=== PATIENT | female | born 1940 | race Caucasian/White ===

== ENCOUNTER 2017-05-30 15:10 | Emergency (ER) | payer MEDICARE, OTHER ==
[2017-05-30] MEDS ORDERED: NovoLIN R IV ONE (15:11)
[2017-05-30] MEDS ORDERED: ROCEPHIN 1 Gm-D5w 50 ml Bag** 1 G/50 ML IVPB IV STA (15:40)
[2017-05-30] MEDS ORDERED: Sodium Chloride 0.9% 1000 ML 1,000 ML IV SCH (15:45)
[2017-05-30] MEDS ORDERED: Robitussin AC Syrup Unit Dose Cup PO STA (15:48)
--- NOTE | 2017-05-30 15:48 | ERPHSYRPT ---
- History of Present Illness Time Seen by Provider: 05/30/17 15:32 Source: patient Exam Limitations: clinical condition Patient Subjective Stated Complaint: pt here for a cough since , pt finished antibotics on for earache and sore throat. no fever Triage Nursing Assessment: pt walked in, alert, resp easy, congested sounding cough, productive june in color Physician History: PATIENT COMPLAINS OF PERSISTENT COUGH FOR 2 DAYS, JUST FINISHED COURSE OF ANTIBIOTIC LEVAQUIN 500MG DAILY FOR 10 DAYS. DENIES FEVER, CHILLS OR CHEST PAIN. Timing/Duration: day(s) (10) Cough Quality/Degree: productive cough Possible Cause: unknown cause Modifying Factors: Improves With: nothing Associated Symptoms: cough Allergies/Adverse Reactions: No Known Drug Allergies Allergy (Verified 05/30/17 15:27) Home Medications: Aspirin EC 81 mg [Ecotrin 81 mg] 81 mg DAILY 05/30/17 [History] Cetirizine HCl [Zyrtec] 10 mg DAILY 05/30/17 [History] Levothyroxine Sodium [Levoxyl] 125 mcg DAILY 05/30/17 [History] Metoprolol Succinate 100 mg DAILY 05/30/17 [History] Potassium Chloride [Klor-Con M10] 20 meq BID 05/30/17 [History] Rosuvastatin Calcium [Rosuvastatin Calcium] 5 mg DAILY 05/30/17 [History] Triamterene/Hydrochlorothiazid [Triamterene-Hctz 75-50 mg Tab] 1 ea DAILY [History] Hx Influenza Vaccination/Date Given: Yes Hx Pneumococcal Vaccination/Date Given: Yes Immunizations Up to Date: Yes - Review of Systems Constitutional: No Symptoms, No Fever, No Chills Eyes: No Symptoms Ears, Nose, & Throat: No Symptoms Respiratory: No Cough, No Dyspnea Cardiac: No Symptoms, No Chest Pain, No Edema, No Syncope Abdominal/Gastrointestinal: No Symptoms, No Abdominal Pain, No Nausea, No Vomiting, No Diarrhea Genitourinary Symptoms: No Symptoms, No Dysuria Musculoskeletal: No Symptoms, No Back Pain, No Neck Pain Skin: No Rash Neurological: No Dizziness, No Focal Weakness, No Sensory Changes Psychological: No Symptoms Endocrine: No Symptoms All Other Systems: Reviewed and Negative - Past Medical History Pertinent Past Medical History: Yes Neurological History: No Pertinent History ENT History: Macular Degeneration Cardiac History: Hypertension Respiratory History: No Pertinent History Endocrine Medical History: Hypothyroidism Musculoskeletal History: Osteoarthritis GI Medical History: Diverticulitis, GERD, Other History: No Pertinent History Psycho-Social History: No Pertinent History Female Reproductive Disorders: No Pertinent History Other Medical History: L TKA 2009 - Past Surgical History Past Surgical History: Yes Neuro Surgical History: No Pertinent History Cardiac: No Pertinent History Respiratory: No Pertinent History Gastrointestinal: Appendectomy, Cholecystectomy Genitourinary: No Pertinent History Musculoskeletal: Orthopedic Surgery Female Surgical History: Hysterectomy, Lumpectomy Other Surgical History: both knee replaced - Social History Smoking Status: Never smoker Exposure to second hand smoke: No Drug Use: none Patient Lives Alone: No - Female History Hx Last Menstrual Period: post Hx Now: No - Nursing Vital Signs Nursing Vital Signs: Initial Vital Signs Temperature 98.5 F 05/30/17 15:22 Pulse Rate 69 05/30/17 15:22 Respiratory Rate 16 05/30/17 15:22 Blood Pressure 155/91 05/30/17 15:22 O2 Sat by Pulse Oximetry 98 05/30/17 15:22 Pain Scale Pain Intensity 0 - Physical Exam General Appearance: no apparent distress, alert Eye Exam: PERRL/EOMI, eyes nml inspection Ears, Nose, Throat Exam: normal ENT inspection, TMs normal, pharynx normal, moist mucous membranes Neck Exam: normal inspection, non-tender, supple, full range of motion Respiratory Exam: diminished breath sounds, wheezing (TERMINAL EXPIRATORY WHEEZES), No respiratory distress Cardiovascular Exam: regular rate/rhythm, normal heart sounds Gastrointestinal/Abdomen Exam: soft, No tenderness Back Exam: normal inspection, No CVA tenderness, No vertebral tenderness Extremity Exam: normal inspection, normal range of motion Neurologic Exam: alert, oriented x 3, cooperative, normal mood/affect, sensation nml, No motor deficits Skin Exam: normal color, warm, dry, No rash Lymphatic Exam: No adenopathy SpO2 Interpretation: normal SpO2: 98 Oxygen Delivery: Aerosol Mask - Radiology Exams Chest X-ray Interpretation: Interpreted by me ([facility]) Ordered Tests: Active Orders 24 hr Category Date Time Status IV Insertion STAT Care 05/30/17 15:40 Active Oxygen-ED Only NASAL CANNULA 2 lpm Care 05/30/17 15:11 Active CHEST 2 VIEWS (PA AND LAT) Stat Exams 05/30/17 16:09 Taken BLOOD CULTURE Stat Lab 05/30/17 15:45 Received CBC W DIFF Stat Lab 05/30/17 15:45 Completed Respiratory Nebulizer STAT RT 05/30/17 16:35 Completed Medication Summary Generic Name Dose Route Start Last Admin Trade Name Akilah PRN Reason Stop Dose Admin Sodium Chloride 1,000 mls @ 100 mls/hr 05/30/17 15:45 05/30/17 15:59 Sodium Chloride 0.9% 1000 Ml IV 06/29/17 15:44 100 mls/hr .Q10H KELLEY Administration Discontinued Medications Generic Name Dose Route Start Last Admin Trade Name Akilah PRN Reason Stop Dose Admin Albuterol/Ipratropium 3 ml 05/30/17 16:35 05/30/17 16:44 Duoneb 0.5-3 Mg/3 Ml Neb IH 05/30/17 16:36 3 ml STAT ONE Administration Albuterol/Ipratropium Confirm 05/30/17 16:42 Duoneb 0.5-3 Mg/3 Ml Neb Administered 05/30/17 16:43 Dose 3 ml IH .STK-MED ONE Guaifenesin/Codeine Phosphate 5 ml 05/30/17 15:48 05/30/17 16:00 Robitussin Ac Syrup Unit Dose Cup PO 05/30/17 15:49 5 ml STAT STA Administration Guaifenesin/Codeine Phosphate Confirm 05/30/17 15:57 Robitussin Ac Syrup Unit Dose Cup Administered 05/30/17 15:58 Dose 5 ml .ROUTE .STK-MED ONE Ceftriaxone Sodium/Dextrose 1 g in 50 mls @ 100 mls/hr 05/30/17 15:40 16:00 Rocephin 1 Gm-D5w 50 Ml Bag IV 05/30/17 16:09 100 mls/hr STAT STA Administration Ceftriaxone Sodium/Dextrose Confirm 05/30/17 15:57 Rocephin 1 Gm-D5w 50 Ml Bag Administered 05/30/17 15:58 Dose 1 g in 50 mls @ ud IV .STK-MED ONE Insulin Human Regular 10 unit 05/30/17 15:11 05/30/17 15:53 Novolin R IV 03/04/18 15:12 Not Given STAT ONE Methylprednisolone Sodium Succinate Confirm 05/30/17 15:57 Solu-Medrol 125 Mg Administered 05/30/17 15:58 Dose 125 mg .ROUTE .STK-MED ONE Methylprednisolone Sodium Succinate 125 mg 05/30/17 16:01 05/30/17 16:02 Solu-Medrol 125 Mg IV 05/30/17 16:02 125 mg STAT ONE Administration Methylprednisolone Sodium Succinate Confirm 05/30/17 16:09 Solu-Medrol 125 Mg Administered 05/30/17 16:10 Dose 125 mg .ROUTE .STK-MED ONE Lab/Rad Data: Laboratory Result Diagrams 05/30/17 15:45 Laboratory Results 05/30/17 Range/Units 15:45 WBC 4.9 (4.0-10.5) K/mm3 RBC 4.41 (4.1-5.4) M/mm3 Hgb 13.5 (12.0-16.0) gm/dl Hct 40.5 (35-47) % MCV 91.8 (78-100) fl MCH 30.6 (26-32) pg MCHC 33.3 (32-36) g/dl RDW 12.6 (11.5-14.0) % Plt Count 204 (150-450) K/mm3 MPV 9.3 (6-9.5) fl Gran % 50.1 (36.0-66.0) % Lymphocytes % 26.0 (24.0-44.0) % Monocytes % 15.7 H (0.0-12.0) % Eosinophils % 7.8 H (0.00-5.0) % Basophils % 0.4 (0.0-0.4) % Basophils # 0.02 (0-0.4) - Progress Progress: improved Air Movement: good Progress Note: 05/30/17 15:54 ADMINISTERED DUO NEB AEROSOL TX, IV SOLUMEDROL 125MG AND ROCEPHIN 1GM IVPB, 1V NORMAL SALINE 100MG/HR , ROCEPHIN 1GM IVPB 05/30/17 17:11 Blood Culture(s) Obtained: Yes Antibiotics given: Yes Counseled pt/family regarding: lab results, diagnosis, need for follow-up, rad results - Departure Time of Disposition: 17:15 Departure Disposition: Home Clinical Impression: ACUTE BRONCHITIS Condition: Stable Critical Care Time: No Referrals: CHAN HUSTON [Primary Care Provider] - Additional Instructions: BEGIN ANTIBIOTIC AUGMENTIN 875MG TWICE DAILY FOR 10 DAYS. PREDNISONE 20MG, 2 TABLETS DAILY FOR 5 DAYS. TAKE OVER THE COUNTER COUGH, ROBITUSSIN DM EXPECTORANT EVERY 4 HOURS NEEDED. Prescriptions: Amox Tr/Potass Clav. 875 mg [Augmentin 875-125 Tablet] 875 mg PO BID #20 tablet Prednisone 20 mg [Deltasone 20 mg] 2 tab PO DAILY #10 tablet
[2017-05-30] MEDS ORDERED: Robitussin AC Syrup Unit Dose Cup ONE (15:57)
[2017-05-30] MEDS ORDERED: solu-MEDROL 125 MG ONE ×2 (15:57→16:09)
[2017-05-30] MEDS ORDERED: Sodium Chloride 0.9% 1000 ML 1,000 ML ONE (15:57)
[2017-05-30] MEDS ORDERED: ROCEPHIN 1 Gm-D5w 50 ml Bag** 1 G/50 ML IVPB IV ONE (15:57)
[2017-05-30] MEDS ORDERED: solu-MEDROL 125 MG IV ONE (16:01)
[2017-05-30 16:03] LABS: BASOPHIL % 0.4 % (0.0-0.4); Basophil (Absolute #) 0.02 (0-0.4); Eosinophil % 7.8 % (0.00-5.0); Eosinophil (Absolute #) 0.38 (0-0.5); Granulocyte Absolute (ANC) 2.43 (1.4-6.9); Granulocytes % 50.1 % (36.0-66.0); Hematocrit 40.5 % (35-47); Hemoglobin 13.5 gm/dl (12.0-16.0); Lymphocyte (Absolute #) 1.26 (1.0-4.6); Mean Cell Volume 91.8 fl (78-100); Mean Corpuscular Hemoglobin 30.6 pg (26-32); Mean Corpuscular Hgb Concent. 33.3 g/dl (32-36); Mean Platelet Volume 9.3 fl (6-9.5); Monocyte (Absolute #) 0.76 (0.0-1.3); Monocytes % 15.7 % (0.0-12.0); Platelet Count 204 K/mm3 (150-450); Red Blood Count 4.41 M/mm3 (4.1-5.4); Red Cell Distribution Width 12.6 % (11.5-14.0); White Blood Count 4.9 K/mm3 (4.0-10.5)
[2017-05-30] MEDS ORDERED: DUONEB 0.5-3 MG/3 ml Neb IH ONE ×2 (16:35→16:42)
[2017-05-30 17:25] VITALS: BP 150/88; PULSE 80; O2SAT 97
--- NOTE | 2017-05-30 20:24 | XRAY ---
Indication: Cough and wheezing. Comparison: None PA/lateral chest clear with incidental right upper lung calcified granuloma. Heart and mediastinal structures within normal limits. Bony thorax intact with mild osteopenia and degenerative changes. Impression: Nonacute chest with chronic features.
== END 2017-05-30 17:24 | disposition home or self-care (01) ==
LOC: ED 15:10
DX: J20.9 Acute bronchitis, unspecified (principal); Z79.82 Long term (current) use of aspirin; Z79.899 Other long term (current) drug therapy
CPT/HCPCS: 36000; 36415; 71046; 85025; 87040; 94150; 94640; 96360; 96365; 96374; 96375; 99284; J0696; J2930; A9270-GY

== ENCOUNTER 2017-10-30 15:37 | Emergency (ER) | payer MEDICARE, OTHER ==
--- NOTE | 2017-10-30 16:26 | ERPHSYRPT ---
- History of Present Illness Time Seen by Provider: 10/30/17 16:11 Source: patient Exam Limitations: no limitations Patient Subjective Stated Complaint: pt reports pain to back beginning some time ago-states that she doesn't wear her bra at home and can barely tolerate wearing it in public because it hurts so bad-denies injury-denies lifiting- denies rash Triage Nursing Assessment: pt pink warm and [id number] easy and nonlabored- no obvious signs of injury-pt ambulatory with no limp or difficulty noted Physician History: The patient is a 77-year-old female with her complaining of intermittent back pain for 2 months. Last night it was very severe and the patient was unable to sleep. She does not want to go through another night like last night. At this time her back pain is minimal. She denies trauma. She denies problems with urination, defecation, or sensory problems. Her past medical history significant for hypertension, high cholesterol, and hypothyroidism. Timing/Duration: other (2 months) Method of Injury: unknown Quality: sharp Back Pain Location: paraspinous muscles Severity of Pain-Max: severe Severity of Pain-Current: mild Modifying Factors: Improves With: nothing Associated Symptoms: lower back pain, muscle spasms Previous symptoms: no prior history Allergies/Adverse Reactions: No Known Drug Allergies Allergy (Verified 10/30/17 15:50) Home Medications: Aspirin EC 81 mg [Ecotrin 81 mg] 81 mg DAILY 05/30/17 [History] Cetirizine HCl [Zyrtec] 10 mg DAILY 05/30/17 [History] Levothyroxine Sodium [Levoxyl] 125 mcg DAILY 05/30/17 [History] Metoprolol Succinate 100 mg DAILY 05/30/17 [History] Potassium Chloride [Klor-Con M10] 20 meq BID 05/30/17 [History] Rosuvastatin Calcium 5 mg DAILY 05/30/17 [History] Triamterene/Hydrochlorothiazid [Triamterene-Hctz 75-50 mg Tab] 1 ea DAILY [History] Hx Tetanus, Diphtheria Vaccination/Date Given: No Hx Influenza Vaccination/Date Given: Yes Hx Pneumococcal Vaccination/Date Given: Yes Immunizations Up to Date: Yes - Review of Systems Constitutional: No Fever, No Chills Eyes: No Symptoms Ears, Nose, & Throat: No Symptoms Respiratory: No Cough, No Dyspnea Cardiac: No Chest Pain, No Edema, No Syncope Abdominal/Gastrointestinal: No Abdominal Pain, No Nausea, No Vomiting, No Diarrhea Genitourinary Symptoms: No Dysuria Musculoskeletal: Back Pain Skin: No Rash Neurological: No Dizziness, No Focal Weakness, No Sensory Changes Psychological: No Symptoms Endocrine: No Symptoms Hematologic/Lymphatic: No Symptoms Immunological/Allergic: No Symptoms All Other Systems: Reviewed and Negative - Past Medical History Pertinent Past Medical History: Yes Neurological History: No Pertinent History ENT History: Macular Degeneration Cardiac History: Hypertension Respiratory History: No Pertinent History Endocrine Medical History: Hypothyroidism Musculoskeletal History: Osteoarthritis GI Medical History: Diverticulitis, GERD, Other History: No Pertinent History Psycho-Social History: No Pertinent History Female Reproductive Disorders: No Pertinent History Other Medical History: L TKA 2008 - Past Surgical History Past Surgical History: Yes Neuro Surgical History: No Pertinent History Cardiac: No Pertinent History Respiratory: No Pertinent History Gastrointestinal: Appendectomy, Cholecystectomy Genitourinary: No Pertinent History Musculoskeletal: Orthopedic Surgery Female Surgical History: Hysterectomy, Lumpectomy Other Surgical History: both knee replaced - Social History Smoking Status: Never smoker Exposure to second hand smoke: No Drug Use: none Patient Lives Alone: No - Female History Hx Now: No - Nursing Vital Signs Nursing Vital Signs: Initial Vital Signs Temperature 97.6 F 10/30/17 15:47 Pulse Rate 68 10/30/17 15:47 Respiratory Rate 16 10/30/17 15:47 Blood Pressure 170/95 10/30/17 15:47 O2 Sat by Pulse Oximetry 96 10/30/17 15:47 Pain Scale Pain Intensity 5 - Physical Exam General Appearance: no apparent distress, alert Eye Exam: PERRL/EOMI, eyes nml inspection Ears, Nose, Throat Exam: normal ENT inspection Neck Exam: normal inspection, non-tender, supple, full range of motion, No meningismus, No midline tenderness Respiratory Exam: normal breath sounds, lungs clear, No respiratory distress Cardiovascular Exam: regular rate/rhythm, normal heart sounds Gastrointestinal Exam: soft, No tenderness, No mass Pelvic Exam: not done Rectal Exam: not done Back Exam: muscle spasm (left lumbar paraspinous), No vertebral tenderness Extremity Exam: normal inspection, normal range of motion, No calf tenderness, No pedal edema Neurologic Exam: alert, oriented x 3, cooperative, outside sales account manager II-XII nml as tested, normal mood/affect, nml station & gait, sensation nml, No motor deficits Skin Exam: normal color, warm, dry, No rash SpO2 Interpretation: normal SpO2: 96 Oxygen Delivery: Room Air - Progress Progress: unchanged Counseled pt/family regarding: diagnosis, need for follow-up - Departure Time of Disposition: 16:29 Departure Disposition: Home Clinical Impression: Back muscle spasm Condition: Stable Critical Care Time: No Referrals: Seda JANE [Primary Care Provider] - Additional Instructions: You have very tight back muscles. Take Flexeril 10 mg before bedtime. I have written an order for you to see physical therapy to treat your back pain as well. Follow-up with your primary medical doctor on Wednesday as scheduled. Prescriptions: Cyclobenzaprine HCl [Flexeril] 10 mg PO Q8H PRN PRN #10 tablet PRN Reason: Pain
[2017-10-30 16:46] VITALS: BP 159/95; PULSE 88; O2SAT 98
== END 2017-10-30 16:47 | disposition home or self-care (01) ==
LOC: ED 15:37
DX: M62.830 Muscle spasm of back (principal); M54.5 Low back pain; Z79.899 Other long term (current) drug therapy
CPT/HCPCS: 99283

== ENCOUNTER 2018-02-22 09:06 | Emergency (ER) | payer MEDICARE, OTHER ==
[2018-02-22] MEDS ORDERED: Norflex 60 MG/2 ML IM ONE (09:27)
[2018-02-22] MEDS ORDERED: Norflex 60 MG/2 ML ONE (09:30)
--- NOTE | 2018-02-22 09:31 | ERPHSYRPT ---
- History of Present Illness Time Seen by Provider: 02/22/18 09:23 Source: patient Exam Limitations: no limitations Physician History: 77-year-old white female with history of macular degeneration, high blood pressure, hypothyroidism, osteoarthritis. Patient arrives with complaint of tightness in her right trapezius pain in her posterior neck symptoms for 2-3 days. Patient states she has got this off and on for several years she usually gets an injection from her family doctor. She has not had any fevers not has otherwise been sick. Past medical history includes macular degeneration, high blood pressure, hypothyroidism, osteoarthritis, diverticulitis, GERD. Past surgical history includes total lateral knee replacements, appendectomy, cholecystectomy, hysterectomy, lumpectomy. Social history negative tobacco alcohol or illicit drug use. Timing/Duration: day(s) (2-3 days) Severity: moderate Modifying Factors: Improves With: nothing Associated Symptoms: No nausea, No vomiting, No abdominal pain, No shortness of breath, No heartburn, No diaphoresis, No cough, No chills, No chest pain, No fever, No headaches, No loss of appetite, No malaise, No rash, No syncope, No seizure, No weakness Allergies/Adverse Reactions: No Known Drug Allergies Allergy (Verified 02/22/18 09:20) Home Medications: Aspirin EC 81 mg [Ecotrin 81 mg] 81 mg DAILY 05/30/17 [History] Cetirizine HCl [Zyrtec] 10 mg DAILY 05/30/17 [History] Levothyroxine Sodium [Levoxyl] 125 mcg DAILY 05/30/17 [History] Metoprolol Succinate 100 mg DAILY 05/30/17 [History] Rosuvastatin Calcium 5 mg DAILY 05/30/17 [History] Triamterene/Hydrochlorothiazid [Triamterene-Hctz 75-50 mg Tab] 1 ea DAILY [History] Hx Tetanus, Diphtheria Vaccination/Date Given: No Hx Influenza Vaccination/Date Given: Yes Hx Pneumococcal Vaccination/Date Given: Yes - Review of Systems Constitutional: No Fever, No Chills Eyes: No Symptoms Ears, Nose, & Throat: No Symptoms Respiratory: No Cough, No Dyspnea Cardiac: No Chest Pain, No Edema, No Syncope Abdominal/Gastrointestinal: No Abdominal Pain, No Nausea, No Vomiting, No Diarrhea Genitourinary Symptoms: No Dysuria Musculoskeletal: Neck Pain (pain right trapezius and neck posteriorly), No Arthralgias, No Back Pain, No Deformity, No Injury, No Joint Redness, No Joint Pain, No Joint Swelling, No Myalgias, No Other Skin: No Rash Neurological: No Dizziness, No Focal Weakness, No Sensory Changes Psychological: No Symptoms Endocrine: No Symptoms All Other Systems: Reviewed and Negative - Past Medical History Pertinent Past Medical History: Yes Neurological History: No Pertinent History ENT History: Macular Degeneration Cardiac History: Hypertension Respiratory History: No Pertinent History Endocrine Medical History: Hypothyroidism Musculoskeletal History: Arthritis GI Medical History: Diverticulitis, GERD, Other History: No Pertinent History Psycho-Social History: No Pertinent History Female Reproductive Disorders: No Pertinent History Other Medical History: L TKA 2008 - Past Surgical History Past Surgical History: Yes Neuro Surgical History: No Pertinent History Cardiac: No Pertinent History Respiratory: No Pertinent History Gastrointestinal: Appendectomy, Cholecystectomy Genitourinary: No Pertinent History Musculoskeletal: Orthopedic Surgery Female Surgical History: Hysterectomy, Lumpectomy Other Surgical History: both knee replaced - Social History Smoking Status: Never smoker Exposure to second hand smoke: No Drug Use: none Patient Lives Alone: No - Nursing Vital Signs Nursing Vital Signs: Initial Vital Signs Temperature 98.5 F 02/22/18 09:09 Pulse Rate 69 02/22/18 09:09 Respiratory Rate 16 02/22/18 09:09 Blood Pressure 173/86 02/22/18 09:09 O2 Sat by Pulse Oximetry 96 02/22/18 09:09 Pain Scale Pain Intensity [Right Neck] 10 Pain Intensity 3 - Physical Exam General Appearance: no apparent distress, alert Eye Exam: PERRL/EOMI, eyes nml inspection Ears, Nose, Throat Exam: normal ENT inspection, TMs normal, pharynx normal, moist mucous membranes Neck Exam: full range of motion, other (mild tenderness with palpation posterior neck and right trapezius) Respiratory Exam: normal breath sounds, lungs clear, No respiratory distress Cardiovascular Exam: regular rate/rhythm, normal heart sounds, normal peripheral pulses Gastrointestinal/Abdomen Exam: soft, normal bowel sounds, No tenderness, No mass Back Exam: normal inspection, normal range of motion, No CVA tenderness, No vertebral tenderness Extremity Exam: normal inspection, normal range of motion, pelvis stable Neurologic Exam: alert, oriented x 3, cooperative, lcpc II-XII nml as tested, normal mood/affect, nml cerebellar function, nml station & gait, sensation nml, No motor deficits Skin Exam: normal color, warm, dry, No rash SpO2 Interpretation: normal (96%) - Course Nursing assessment & vital signs reviewed: Yes Ordered Tests: Active Orders 24 hr Category Date Time Status CERVICAL SPINE (2 OR 3 VIEW) Stat Exams 02/22/18 09:27 Completed Medication Summary Discontinued Medications Generic Name Dose Route Start Last Admin Trade Name Akilah PRN Reason Stop Dose Admin Orphenadrine Citrate 60 mg 02/22/18 09:27 02/22/18 09:35 Norflex 60 Mg/2 Ml IM 02/22/18 09:28 60 mg STAT ONE Administration Orphenadrine Citrate Confirm 02/22/18 09:30 Norflex 60 Mg/2 Ml Administered 02/22/18 09:31 Dose 60 mg .ROUTE .STK-MED ONE - Progress Progress: improved Progress Note: 02/22/18 11:01 Patient is feeling better after Norflex 60 mg IM X-ray of the cervical spine shows advanced cervical degenerative disc disease and degenerative joint disease also 2.5-3 mm anterior subluxation of C3 over C4 likely degenerative also slight retrolisthesis of C6 with respect to C7 also likely degenerative. Will place patient on Flexeril She is to take Tylenol as needed for pain as well. Patient will need to follow-up with her family doctor. - Departure Time of Disposition: 11:02 Departure Disposition: Home Clinical Impression: Neck pain, degenerative arthritis of the neck Condition: Fair Critical Care Time: No Referrals: Seda JANE [Primary Care Provider] - Additional Instructions: Return home. Flexeril 10 mg orally 3 times a day for 5 days. Tylenol every 4 hours as needed for pain. Follow-up with your family doctor. Return for acute distress or for severe symptoms. Prescriptions: Cyclobenzaprine HCl [Flexeril] 10 mg PO TID #15 tablet
--- NOTE | 2018-02-22 10:32 | XRAY ---
Exam: 3 view cervical spine series from 02/22/2018. Comparison: None. Indication: 77-year-old female with neck pain, patient states she has chronic neck pain and tightness, no known injury, no history of prior surgery. Findings: AP, lateral, and open-mouth odontoid views of the cervical spine were obtained. I see no acute cervical spine fracture, AP traumatic subluxation, or prevertebral soft tissue swelling. However, severe degenerative disc disease is seen at C4-C5 and C5-C6 with virtually complete loss of the respective interspace heights, subchondral cystic changes of the opposing vertebral endplates, and large anterior and mild posterior spurring. I also note mild narrowing of the C6-C7 interspace height with minimal anterior and mild posterior vertebral endplate spurring indicating mild to moderate degenerative disc disease at this level. There is slight narrowing of the C3-C4 interspace height. Arthritic change is seen at the preodontoid space. Advanced facet joint arthropathy is seen at C3-C4, C4-C5, and C7-T1. There is about 2.5 mm to 3 mm anterior subluxation of C3 over C4 and minimal retrolisthesis of C6 with respect to C7 on the lateral radiograph. I believe this is due to arthritis. No cervical ribs are seen. C1 and C2 appear unremarkable on the open-mouth odontoid view. The mouth is edentulous. A couple punctate radiopaque densities are seen within the lower left side of the mouth overlying the medial aspect of the body of the mandible on this side. Impression: 1. Advanced cervical degenerative disc disease and degenerative joint disease are seen, as discussed above. 2. 2.5 mm to 3 mm anterior subluxation of C3 over C4, likely degenerative. I believe there is also slight retrolisthesis of C6 with respect to C7. This is also likely degenerative.
[2018-02-22 10:58] VITALS: BP 151/73; PULSE 56; O2SAT 98
== END 2018-02-22 11:18 | disposition home or self-care (01) ==
LOC: ED 09:06
DX: M54.2 Cervicalgia (principal); M50.31 Other cervical disc degeneration, high cervical region; M50.33 Other cervical disc degeneration, cervicothoracic region; Z79.899 Other long term (current) drug therapy
CPT/HCPCS: 72040; 96372; 99284; J2360

== ENCOUNTER 2018-02-23 11:24 | Emergency (ER) | payer MEDICARE, OTHER ==
--- NOTE | 2018-02-23 12:08 | ERPHSYRPT ---
- History of Present Illness Time Seen by Provider: 02/23/18 11:45 Source: patient, family Exam Limitations: no limitations Patient Subjective Stated Complaint: pt alert, walked in , resp easy, skin w/p/d , neck and shoulders tender to touch Triage Nursing Assessment: pt was seen here yesterday in er and states it did not help Physician History: 77 y/o white female presents to ED again today with 3 day h/o neck pain. pt states she was here yesterday and received xray of neck. no acute fx. she was given a rx for flexeril. pts states neck pain worse. pt denies trauma. Timing/Duration: day(s) (3) Severity: moderate Modifying Factors: Improves With: movement (worsens) Associated Symptoms: No nausea, No vomiting, No abdominal pain, No shortness of breath, No heartburn, No diaphoresis, No cough Allergies/Adverse Reactions: No Known Drug Allergies Allergy (Verified 02/23/18 11:41) Home Medications: Aspirin EC 81 mg [Ecotrin 81 mg] 81 mg DAILY 05/30/17 [History] Cetirizine HCl [Zyrtec] 10 mg DAILY 05/30/17 [History] Levothyroxine Sodium [Levoxyl] 125 mcg DAILY 05/30/17 [History] Metoprolol Succinate 100 mg DAILY 05/30/17 [History] Rosuvastatin Calcium 5 mg DAILY 05/30/17 [History] Triamterene/Hydrochlorothiazid [Triamterene-Hctz 75-50 mg Tab] 1 ea DAILY [History] Hx Tetanus, Diphtheria Vaccination/Date Given: No Hx Influenza Vaccination/Date Given: Yes Hx Pneumococcal Vaccination/Date Given: Yes - Review of Systems Constitutional: No Symptoms Eyes: No Symptoms Ears, Nose, & Throat: No Symptoms Respiratory: No Symptoms Cardiac: No Symptoms Abdominal/Gastrointestinal: No Symptoms Genitourinary Symptoms: No Symptoms Musculoskeletal: Neck Pain, No Back Pain, No Deformity, No Fall, No Injury Skin: No Symptoms Neurological: No Symptoms Psychological: No Symptoms Endocrine: No Symptoms Hematologic/Lymphatic: No Symptoms Immunological/Allergic: No Symptoms All Other Systems: Reviewed and Negative - Past Medical History Pertinent Past Medical History: Yes Neurological History: No Pertinent History ENT History: Macular Degeneration Cardiac History: Hypertension Respiratory History: No Pertinent History Endocrine Medical History: Hypothyroidism Musculoskeletal History: Arthritis GI Medical History: Diverticulitis, GERD, Other History: No Pertinent History Psycho-Social History: No Pertinent History Female Reproductive Disorders: No Pertinent History Other Medical History: L TKA 2009 - Past Surgical History Past Surgical History: Yes Neuro Surgical History: No Pertinent History Cardiac: No Pertinent History Respiratory: No Pertinent History Gastrointestinal: Appendectomy, Cholecystectomy Genitourinary: No Pertinent History Musculoskeletal: Orthopedic Surgery Female Surgical History: Hysterectomy, Lumpectomy Other Surgical History: both knee replaced - Social History Smoking Status: Never smoker Exposure to second hand smoke: No Drug Use: none Patient Lives Alone: No - Female History Hx Last Menstrual Period: post Hx Now: No - Nursing Vital Signs Nursing Vital Signs: Initial Vital Signs Temperature 98.0 F 02/23/18 11:36 Pulse Rate 79 02/23/18 11:36 Respiratory Rate 16 02/23/18 11:36 Blood Pressure 167/103 02/23/18 11:36 O2 Sat by Pulse Oximetry 96 02/23/18 11:36 Pain Scale Pain Intensity 10 - Physical Exam General Appearance: no apparent distress, alert, anxiety Eye Exam: PERRL/EOMI Ears, Nose, Throat Exam: normal ENT inspection, TMs normal, moist mucous membranes Neck Exam: normal inspection, full range of motion, other (bilat paraspinous muscle tenderness to palpation ), No lymphadenopathy Respiratory Exam: normal breath sounds, lungs clear, airway intact, No chest tenderness, No respiratory distress, No accessory muscle use, No rhonchi, No wheezing, No stridor Cardiovascular Exam: regular rate/rhythm, normal heart sounds, normal peripheral pulses Gastrointestinal/Abdomen Exam: soft, normal bowel sounds, No tenderness, No guarding, No rebound Pelvic Exam: not done Rectal Exam: not done Back Exam: normal inspection, normal range of motion, No CVA tenderness, No vertebral tenderness Extremity Exam: normal inspection, normal range of motion, pelvis stable Neurologic Exam: alert, oriented x 3, cooperative, 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 Skin Exam: normal color, warm, dry Lymphatic Exam: No adenopathy SpO2 Interpretation: normal SpO2: 96 Oxygen Delivery: Room Air - Course Nursing assessment & vital signs reviewed: Yes Ordered Tests: Active Orders 24 hr Category Date Time Status CERVICAL SPINE WO CONTRAST [CT] Stat Exams 02/23/18 12:12 Completed Medication Summary Discontinued Medications Generic Name Dose Route Start Last Admin Trade Name Akilah PRN Reason Stop Dose Admin Hydrocodone Bitart/Acetaminophen 1 tab 02/23/18 12:12 02/23/18 12:19 Hammond 5/325 Mg PO 02/23/18 12:13 1 tab STAT ONE Administration Hydrocodone Bitart/Acetaminophen Confirm 02/23/18 12:17 Hammond 5/325 Mg Administered 02/23/18 12:18 Dose 1 tab .ROUTE .STK-MED ONE Lorazepam 1 mg 02/23/18 12:10 02/23/18 12:18 Ativan 2 Mg/1 Ml Vial IM 02/23/18 12:11 2 mg STAT ONE Administration Lorazepam Confirm 02/23/18 12:17 Ativan 2 Mg/1 Ml Vial Administered 02/23/18 12:18 Dose 2 mg .ROUTE .STK-MED ONE Methylprednisolone Sodium Succinate 125 mg 02/23/18 12:11 02/23/18 12:18 Solu-Medrol 125 Mg IM 02/23/18 12:12 125 mg STAT ONE Administration Methylprednisolone Sodium Succinate Confirm 02/23/18 12:17 Solu-Medrol 125 Mg Administered 02/23/18 12:18 Dose 125 mg .ROUTE .STK-MED ONE Ondansetron HCl 4 mg 02/23/18 12:12 02/23/18 12:19 Zofran Odt 4 Mg PO 02/23/18 12:13 4 mg STAT ONE Administration Ondansetron HCl Confirm 02/23/18 12:17 Zofran Odt 4 Mg Administered 02/23/18 12:18 Dose 4 mg .ROUTE .STK-MED ONE - Progress Progress: improved Progress Note: 02/23/18 14:33 ct c spine-chronic arthritic changes. no acute fx or subluxation Counseled pt/family regarding: diagnosis, need for follow-up, rad results - Departure Time of Disposition: 14:33 Departure Disposition: Home Clinical Impression: Cervical strain Condition: Stable Critical Care Time: No Referrals: Seda JANE [Primary Care Provider] - Additional Instructions: continue your medication for muscle spasms. follow up with primary doctor for further management Prescriptions: Hydrocodone/APAP 5/325 [Hammond 5/325 mg] 1 each PO Q8H PRN PRN #9 tablet MDD 3 PRN Reason: Pain Prednisone 10 mg [Deltasone 10 mg] 10 mg PO TID #12 tablet
[2018-02-23] MEDS ORDERED: Ativan 2 MG/1 ML VIAL IM ONE (12:10)
[2018-02-23] MEDS ORDERED: solu-MEDROL 125 MG IM ONE (12:11)
[2018-02-23] MEDS ORDERED: NORCO 5/325 MG PO ONE (12:12)
[2018-02-23] MEDS ORDERED: ZOFRAN ODT 4 MG PO ONE (12:12)
[2018-02-23] MEDS ORDERED: Ativan 2 MG/1 ML VIAL ONE (12:17)
[2018-02-23] MEDS ORDERED: NORCO 5/325 MG ONE (12:17)
[2018-02-23] MEDS ORDERED: solu-MEDROL 125 MG ONE (12:17)
[2018-02-23] MEDS ORDERED: ZOFRAN ODT 4 MG ONE (12:17)
--- NOTE | 2018-02-23 13:30 | XRAY ---
Exam: CT of the cervical spine without IV contrast from 02/23/2018. CTDI: 54.82 Comparison: 3 view cervical spine series from 02/22/2018. Indication: Pain in neck for years, worse on right side, no known injury, no history of prior surgery. Technique: Non-IV contrast axial images were obtained through the cervical spine. Reconstructed coronal and sagittal images were created and reviewed. Findings: I see no acute cervical spine fracture, AP traumatic subluxation, or prevertebral soft tissue swelling. Moderate degenerative changes are seen at the preodontoid space. There is severe degenerative disc disease and degenerative joint disease at C4-C5 and C5-C6 with complete loss of the respective interspace heights, sclerosis and subchondral cystic changes of the opposing vertebral endplates, and large anterior and left posterior osteophytes. I also see advanced osteoarthritic changes of the C4-C5 and C5-C6 uncovertebral joints bilaterally. There is also moderate degenerative disc disease and degenerative joint disease at C6-C7 with less pronounced cervical interspace narrowing and anterior and posterior vertebral endplate spurring. Less pronounced moderate degenerative changes of the C6-C7 uncovertebral joints are seen. I also note mild degenerative change of the C3-C4 uncovertebral joints. There is slight narrowing of the C3-C4 interspace height with minimal anterior and posterior vertebral endplate spurring. Mild degenerative disc disease is seen at T1-T2. There are no cervical ribs. The C1-C2 relationship appears unremarkable on the coronal images. There is slightly more than 2 mm anterolisthesis of C3 over C4 on the sagittal images which I believe is due to arthritis and/or ligamentous laxity. There is also equivocal evidence of slight retrolisthesis of C6 with respect to C7 representing no change. I note moderate to marked facet joint arthropathy on the right at C3-C4, C4-C5, and C7-T1. In addition, there is marked facet joint arthropathy seen posteriorly on the left at C3-C4 and C4-C5. Mild facet joint osteoarthritic changes are seen on the left at C2-C3. The right C2-C3 facet joint appears fused. On the axial and sagittal images, there appears to be moderate central canal stenosis in the AP dimension at C5-C6 and at least mild central canal stenosis in the AP direction at C3-C4, C4-C5, and C6-C7. Regarding the cervical neural foramen, there is moderate narrowing of the right C2-C3 neural foramen, marked narrowing of the C3-C4 neural foramen bilaterally, marked narrowing of the C4-C5 neural foramen, right greater than left, mild narrowing of the bilateral C5-C6 neural foramen, and moderate narrowing of the bilateral C6-C7 neural foramen (left greater than right). A small bubble of extruded vacuum disc phenomena is seen on the left at C6-C7 on axial image #42. Minimal biapical pleural-parenchymal scarring is seen. The soft tissues of the neck reveal no abnormal mass or cervical lymphadenopathy. The airway appears unremarkable. Impression: 1. I see no acute cervical spine fracture, AP traumatic subluxation, or prevertebral soft tissue swelling. 2. Advanced multilevel degenerative disc disease and degenerative joint disease are seen, most pronounced at C4-C5 and C5-C6. There is at least moderate compromise of the AP dimension of the spinal canal in the midline at C5-C6 and mild compromise of the AP dimension of the spinal canal in the midline at C3-C4, C4-C5, and C6-C7. Significant bilateral cervical neural foraminal narrowing is seen, as discussed above. 3. Slight greater than 2 mm anterolisthesis of C3 over C4 is likely due to arthritis/ligamentous laxity. There is also equivocal evidence of very slight retrolisthesis of C6 with respect to C7. This appearance is similar to the plain films performed on 02/22/2018.
[2018-02-23 13:37] VITALS: BP 143/74
[2018-02-23 14:54] VITALS: PULSE 62; O2SAT 97
== END 2018-02-23 14:54 | disposition home or self-care (01) ==
LOC: ED 11:24
DX: S16.1XXA Strain of muscle, fascia and tendon at neck level, initial encounter (principal); M54.2 Cervicalgia; Z79.899 Other long term (current) drug therapy
CPT/HCPCS: 72125; 96372; 99284; J2060; J2930; Q0162; A9270-GY

== ENCOUNTER 2018-10-26 19:10 | Emergency (ER) | payer MEDICARE, OTHER ==
--- NOTE | 2018-10-26 19:53 | ERPHSYRPT ---
- History of Present Illness Time Seen by Provider: 10/26/18 19:41 Source: patient Exam Limitations: no limitations Patient Subjective Stated Complaint: pt is alert and oriented. pt comes in with c/o dizziness. pt is not currently dizzy. pt states that she was getting up from her chair when she felt dizzy and sat back into her chair. pt states she had a brief headache above her left eye. pt states that she again has a brief period of dizziness when getting out of her car to come in her. pt denies any dizziness or any other complaint at this time. pt PERRLA. pt muscle strength equal bilat. pt speaking clearly and appropriately. no one sided facial drooping. pt denies numbness or tingling. pt also states that she has been having some ear issues and feeling like her ears are full and was planning on making an appointment to get them checked. she states that her ears have felt full for a month or more. Triage Nursing Assessment: see above Physician History: 78-year-old white female arrives with complaint of dizziness symptoms occurred at 6:00 when patient was getting out of a chair she states it went away when she sat back into the chair than when she is getting out of the car coming into the emergency room she felt dizzy again she did not have any problems moving no speaking problems no facial droop. She states all her symptoms have resolved. She states she has had intermittent episodes of dizziness in the past. patient does state that she feels like her ears have been full lately, especially her left Past medical history includes macular degeneration, high blood pressure, arthritis, diverticulitis, GERD Past surgical history includes bilateral total knee arthroplasty, hysterectomy, lumpectomy, appendectomy, cholecystectomy Social history patient denies tobacco alcohol or illicit drug use Timing/Duration: today (6:00 PM) Severity: mild Modifying Factors: Improves With: other (occurred when getting out of a chair, resolved with sitting back in the chair occurred when walking from car to the emergency room) Associated Symptoms: other (dizziness), No nausea, No vomiting, No abdominal pain, No shortness of breath, No heartburn, No diaphoresis, No cough, No chest pain, No fever (his), No loss of appetite, No malaise, No rash, No syncope, No seizure, No weakness Allergies/Adverse Reactions: No Known Drug Allergies Allergy (Verified 02/23/18 11:41) Home Medications: Aspirin EC 81 mg [Ecotrin 81 mg] 81 mg PO DAILY 05/30/17 [History] Cetirizine HCl [Zyrtec] 10 mg PO DAILY 05/30/17 [History] Levothyroxine Sodium [Levoxyl] 100 mcg PO DAILY 05/30/17 [History] Metoprolol Succinate 100 mg PO DAILY 05/30/17 [History] Rosuvastatin Calcium 5 mg PO DAILY 05/30/17 [History] Triamterene/Hydrochlorothiazid [Triamterene-Hctz 75-50 mg Tab] 1 ea PO DAILY 07/14 [History] Hx Tetanus, Diphtheria Vaccination/Date Given: No Hx Influenza Vaccination/Date Given: Yes Hx Pneumococcal Vaccination/Date Given: Yes Immunizations Up to Date: Yes - Review of Systems Constitutional: No Fever, No Chills Eyes: No Symptoms, Other Ears, Nose, & Throat: Other (patient feels like her ears have been full lately especially her left), No Ear Discharge, No Hearing Changes, No Tinnitus, No Nose Pain, No Nose Congestion, No Nose Discharge, No Sinus Drainage, No Epistaxis, No Mouth Pain, No Mouth Swelling, No Loose Teeth, No Throat Pain, No Throat Swelling, No Hoarse, No Painful Swallowing, No Snoring Respiratory: No Cough, No Dyspnea Cardiac: No Chest Pain, No Edema, No Syncope Abdominal/Gastrointestinal: No Abdominal Pain, No Nausea, No Vomiting, No Diarrhea Genitourinary Symptoms: No Dysuria Musculoskeletal: No Back Pain, No Neck Pain Skin: No Rash Neurological: Dizziness, Headache (brief headache over left eye resolved), Vertigo, No Focal Weakness, No Gait Changes, No Irritability, No Lethargy, No Paralysis, No Parasthesia, No Seizure, No Sensory Changes, No Speech Changes, No Tics, No Tremors Psychological: No Symptoms Endocrine: No Symptoms All Other Systems: Reviewed and Negative - Past Medical History Pertinent Past Medical History: Yes Neurological History: No Pertinent History ENT History: Macular Degeneration Cardiac History: Hypertension Respiratory History: No Pertinent History Endocrine Medical History: Hypothyroidism Musculoskeletal History: Arthritis GI Medical History: Diverticulitis, GERD, Other History: No Pertinent History Psycho-Social History: No Pertinent History Female Reproductive Disorders: No Pertinent History Other Medical History: L and R total knee 2008 - Past Surgical History Past Surgical History: Yes Neuro Surgical History: No Pertinent History Cardiac: No Pertinent History Respiratory: No Pertinent History Gastrointestinal: Appendectomy, Cholecystectomy Genitourinary: No Pertinent History Musculoskeletal: Orthopedic Surgery Female Surgical History: Hysterectomy, Lumpectomy Other Surgical History: both knee replaced - Social History Smoking Status: Former smoker Exposure to second hand smoke: No Drug Use: none Patient Lives Alone: No - Female History Hx Now: No - Nursing Vital Signs Nursing Vital Signs: Initial Vital Signs Temperature 97.8 F 10/26/18 19:29 Pulse Rate 57 L 10/26/18 19:29 Respiratory Rate 18 10/26/18 19:29 Blood Pressure 162/90 10/26/18 19:29 O2 Sat by Pulse Oximetry 97 10/26/18 19:29 Pain Scale Pain Intensity 0 - Physical Exam General Appearance: no apparent distress, alert Eye Exam: PERRL/EOMI, eyes nml inspection Ears, Nose, Throat Exam: normal ENT inspection, TMs normal, pharynx normal, moist mucous membranes Neck Exam: normal inspection, non-tender, supple, full range of motion Respiratory Exam: normal breath sounds, lungs clear, No respiratory distress Cardiovascular Exam: regular rate/rhythm, normal heart sounds, normal peripheral pulses, capillary refill <2 sec Gastrointestinal/Abdomen Exam: soft, normal bowel sounds, No tenderness, No mass Back Exam: normal inspection, normal range of motion, No CVA tenderness, No vertebral tenderness Extremity Exam: normal inspection, normal range of motion, pelvis stable Neurologic Exam: alert, oriented x 3, cooperative, 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, normal mood/affect, nml cerebellar function, nml station & gait, sensation nml, other (patient is alert, oriented x3,no facial droop, normal finger to nose, no tongue deviation, no pronator drift, active directory specialist equal and symmetrical 5 over 5, full range of motion to all extremities, sensation intact to all extremities Almo Coma Scale is 15), No motor deficits, No sensory deficit, No disoriented, No confusion, No agitation, No uncooperative, No intoxicated appearance, No depressed mood/affect, No motor weakness, No facial droop, No slurred speech, No aphasia, No dysarthria, No abnormal gait, No abnormal cerebellar tests, No EOM palsy Skin Exam: normal color, warm, dry, No rash SpO2 Interpretation: normal (97%) SpO2: 97 - Course Nursing assessment & vital signs reviewed: Yes EKG Interpreted by Me: RATE (55 bpm), Sinus Rosalio, NORMAL AXIS, Other (EKG: Sinus bradycardia, 55 beats per minute, normal axis, no acute ST or T wave changes are noted. No old EKG for comparison) - CT Exams Head CT Interpretation: Discussed w/radiologist (head CT: Impression: No comparison's , normal aging atrophy and minimal degenerative microischemia, remaining CT head negative) Ordered Tests: Active Orders 24 hr Category Date Time Status EKG-ER Only STAT Care 10/26/18 19:46 Active IV Insertion STAT Care 10/26/18 19:46 Active HEAD WITHOUT CONTRAST [CT] Stat Exams 10/26/18 19:47 Taken CBC W DIFF Stat Lab 10/26/18 19:50 Completed CMP Stat Lab 10/26/18 19:50 Completed TROPONIN Q3H Lab 10/26/18 19:50 Completed TROPONIN Q3H Lab 10/26/18 23:00 Ordered TROPONIN Q3H Lab 10/27/18 02:00 Ordered TROPONIN Q3H Lab 10/27/18 05:00 Ordered TROPONIN Q3H Lab 10/27/18 08:00 Ordered UA W/RFX UR CULTURE Stat Lab 10/26/18 21:37 Completed Medication Summary Generic Name Dose Route Start Last Admin Trade Name Freq PRN Reason Stop Dose Admin Sodium Chloride 1,000 mls @ 100 mls/hr 10/26/18 20:00 10/26/18 20:03 Sodium Chloride 0.9% 1000 Ml IV 11/25/18 19:59 100 mls/hr .Q10H KELLEY Administration Discontinued Medications Generic Name Dose Route Start Last Admin Trade Name Freq PRN Reason Stop Dose Admin Meclizine HCl 25 mg 10/26/18 20:37 10/26/18 20:56 Antivert 25 Mg PO 10/26/18 20:38 25 mg STAT ONE Administration Meclizine HCl Confirm 10/26/18 20:56 Antivert 25 Mg Administered 10/26/18 20:57 Dose 25 mg .ROUTE .STK-MED ONE Potassium Bicarbonate 50 meq 10/26/18 20:19 10/26/18 20:31 K-Lyte 25 Meq PO 10/26/18 20:20 50 meq STAT ONE Administration Potassium Bicarbonate Confirm 10/26/18 20:27 K-Lyte 25 Meq Administered 10/26/18 20:28 Dose 50 meq .ROUTE .STK-MED ONE Lab/Rad Data: Laboratory Result Diagrams 10/26/18 19:50 10/26/18 19:50 Laboratory Results 10/26/18 10/26/18 10/26/18 Range/Units 21:37 19:50 19:50 WBC (4.0-10.5) K/mm3 RBC (4.1-5.4) M/mm3 Hgb (12.0-16.0) gm/dl Hct (35-47) % MCV (78-100) fl MCH (26-32) pg MCHC (32-36) g/dl RDW (11.5-14.0) % Plt Count (150-450) K/mm3 MPV (6-9.5) fl Gran % (36.0-66.0) % Eos # (Auto) (0-0.5) Absolute Lymphs (auto) (1.0-4.6) Absolute Monos (auto) (0.0-1.3) Lymphocytes % (24.0-44.0) % Monocytes % (0.0-12.0) % Eosinophils % (0.00-5.0) % Basophils % (0.0-0.4) % Absolute Granulocytes (1.4-6.9) Basophils # (0-0.4) Sodium 137 (137-145) mmol/L Potassium 3.0 L (3.5-5.1) mmol/L Chloride 99 (98-107) mmol/L Carbon Dioxide 29 (22-30) mmol/L Anion Gap 11.4 (5-15) MEQ/L BUN 14 (7-17) mg/dL Creatinine 1.09 H (0.52-1.04) mg/dL Estimated GFR 51.6 ML/MIN Glucose 109 H (74-106) mg/dL Calcium 10.4 H (8.4-10.2) mg/dL Total Bilirubin 0.30 (0.2-1.3) mg/dL AST 31 (14-36) U/L ALT 19 (0-35) U/L Alkaline Phosphatase 72 (38-126) U/L Troponin I < 0.012 (0.000-0.034) ng/mL Serum Total Protein 7.6 (6.3-8.2) g/dL Albumin 4.5 (3.5-5.0) g/dL Urine Color STRAW (YELLOW) Urine Appearance CLEAR (CLEAR) Urine pH 7.0 (5-6) Ur Specific [place] 1.005 (1.005-1.025) Urine Protein NEGATIVE (Negative) Urine Ketones NEGATIVE (NEGATIVE) Urine Blood NEGATIVE (0-5) Boom/ul Urine Nitrite NEGATIVE (NEGATIVE) Urine Bilirubin NEGATIVE (NEGATIVE) Urine Urobilinogen NEGATIVE (0-1) mg/dL Ur Leukocyte Esterase MODERATE (NEGATIVE) Urine WBC (Auto) 6-10 (0-5) /HPF Urine RBC (Auto) 0-2 (0-2) /HPF U Epithel Cells (Auto) RARE (FEW) /HPF Urine Bacteria (Auto) NONE SEEN (NEGATIVE) /HPF Urine Culture Reflexed NO (NO) Urine Glucose NEGATIVE (NEGATIVE) mg/dL 10/26/18 Range/Units 19:50 WBC 5.5 (4.0-10.5) K/mm3 RBC 4.24 (4.1-5.4) M/mm3 Hgb 13.5 (12.0-16.0) gm/dl Hct 40.1 (35-47) % MCV 94.6 (78-100) fl MCH 31.8 (26-32) pg MCHC 33.7 (32-36) g/dl RDW 13.1 (11.5-14.0) % Plt Count 247 (150-450) K/mm3 MPV 9.3 (6-9.5) fl Gran % 45.4 (36.0-66.0) % Eos # (Auto) 0.21 (0-0.5) Absolute Lymphs (auto) 1.99 (1.0-4.6) Absolute Monos (auto) 0.79 (0.0-1.3) Lymphocytes % 36.1 (24.0-44.0) % Monocytes % 14.3 H (0.0-12.0) % Eosinophils % 3.8 (0.00-5.0) % Basophils % 0.4 (0.0-0.4) % Absolute Granulocytes 2.51 (1.4-6.9) Basophils # 0.02 (0-0.4) Sodium (137-145) mmol/L Potassium (3.5-5.1) mmol/L Chloride (98-107) mmol/L Carbon Dioxide (22-30) mmol/L Anion Gap (5-15) MEQ/L BUN (7-17) mg/dL Creatinine (0.52-1.04) mg/dL Estimated GFR ML/MIN Glucose (74-106) mg/dL Calcium (8.4-10.2) mg/dL Total Bilirubin (0.2-1.3) mg/dL AST (14-36) U/L ALT (0-35) U/L Alkaline Phosphatase (38-126) U/L Troponin I (0.000-0.034) ng/mL Serum Total Protein (6.3-8.2) g/dL Albumin (3.5-5.0) g/dL Urine Color (YELLOW) Urine Appearance (CLEAR) Urine pH (5-6) Ur Specific [place] (1.005-1.025) Urine Protein (Negative) Urine Ketones (NEGATIVE) Urine Blood (0-5) Boom/ul Urine Nitrite (NEGATIVE) Urine Bilirubin (NEGATIVE) Urine Urobilinogen (0-1) mg/dL Ur Leukocyte Esterase (NEGATIVE) Urine WBC (Auto) (0-5) /HPF Urine RBC (Auto) (0-2) /HPF U Epithel Cells (Auto) (FEW) /HPF Urine Bacteria (Auto) (NEGATIVE) /HPF Urine Culture Reflexed (NO) Urine Glucose (NEGATIVE) mg/dL - Progress Progress: improved Progress Note: 10/26/18 20:34 Patient with no dizziness at this time she did describe her symptoms is more of a vertigo earlier. Patient did have a potassium of 3.0 EKG sinus bradycardia 55 beats per minute normal axis no acute ST or T wave changes no old EKG for comparison patient's chemistry sodium 137 potassium 3.0 chloride 99 bicarbonate 29 BUN was 14 creatinine 1.019 glucose 109 CBC white blood cell 5.5 hemoglobin 13.5 hematocrit 40.1 platelets 247 Patient does telemetry that she is supposed to be taking potassium she had one day where she wasn't because of some diarrhea which resolved Patient is given 50 mEq of potassium here in the emergency room patient's head CT remarkable for some normal aging atrophy and minimal degenerative micro- ischemia remaining CT head is normal. I've asked the patient's nurse to give the patient a 500 mL bolus of normal saline awaiting troponin on this patient. Awaiting urinalysis on this patient. Will give patient Antivert. Impression vertigo, hypokalemia 10/26/18 21:47 Patient doing well no further complaints we'll discharge. - Departure Departure Disposition: Home Clinical Impression: Dizziness, Vertigo, Hypokalemia Condition: Fair Critical Care Time: No Referrals: Seda JANE [Primary Care Provider] - Additional Instructions: Return home. Plenty of fluids. Continue current medications. Antivert as prescribed as needed for dizziness. Followup with your family doctor call tomorrow and schedule followup appointment. Return for acute distress severe symptoms or for any problems. Prescriptions: Meclizine HCl 25 mg [Antivert 25 mg] 25 mg PO TIDPRN #20 tablet
[2018-10-26] MEDS ORDERED: Sodium Chloride 0.9% 1000 ML 1,000 ML ONE (19:55)
[2018-10-26] MEDS ORDERED: Sodium Chloride 0.9% 1000 ML 1,000 ML IV SCH (20:00)
[2018-10-26 20:01] LABS: BASOPHIL % 0.4 % (0.0-0.4); Basophil (Absolute #) 0.02 (0-0.4); Eosinophil % 3.8 % (0.00-5.0); Eosinophil (Absolute #) 0.21 (0-0.5); Granulocyte Absolute (ANC) 2.51 (1.4-6.9); Granulocytes % 45.4 % (36.0-66.0); Hematocrit 40.1 % (35-47); Hemoglobin 13.5 gm/dl (12.0-16.0); Lymphocyte (Absolute #) 1.99 (1.0-4.6); Lymphocytes % 36.1 % (24.0-44.0); Mean Cell Volume 94.6 fl (78-100); Mean Corpuscular Hemoglobin 31.8 pg (26-32); Mean Corpuscular Hgb Concent. 33.7 g/dl (32-36); Mean Platelet Volume 9.3 fl (6-9.5); Monocyte (Absolute #) 0.79 (0.0-1.3); Monocytes % 14.3 % (0.0-12.0); Platelet Count 247 K/mm3 (150-450); Red Blood Count 4.24 M/mm3 (4.1-5.4); Red Cell Distribution Width 13.1 % (11.5-14.0); White Blood Count 5.5 K/mm3 (4.0-10.5)
[2018-10-26 20:12] LABS: ALBUMIN 4.5 g/dL (3.5-5.0); ANION GAP 11.4 MEQ/L (5-15); BILIRUBIN,TOTAL 0.3 mg/dL (0.2-1.3); Calcium 10.4 mg/dL (8.4-10.2); Creatinine 1 1.09 mg/dL (0.52-1.04); Total Protein 7.6 g/dL (6.3-8.2)
[2018-10-26] MEDS ORDERED: K-LYTE 25 MEQ PO ONE (20:19)
[2018-10-26] MEDS ORDERED: K-LYTE 25 MEQ ONE (20:27)
[2018-10-26] MEDS ORDERED: ANTIVERT 25 MG PO ONE (20:37)
[2018-10-26 20:56] VITALS: PULSE 59
[2018-10-26] MEDS ORDERED: ANTIVERT 25 MG ONE (20:56)
[2018-10-26 21:42] LABS: Appearance CLEAR (CLEAR); Bacteria NONE SEEN /HPF (NEGATIVE); Bilirubin NEGATIVE (NEGATIVE); Blood NEGATIVE Ery/ul (0-5); Epithelial Cells RARE /HPF (FEW); Glucose NEGATIVE (NEGATIVE); Ketones NEGATIVE (NEGATIVE); Leukocyte Esterase MODERATE (NEGATIVE); Nitrite NEGATIVE (NEGATIVE); Protein,Urine Dip NEGATIVE (Negative); RBC 0-2 /HPF (0-2); Specific Gravity 1.005 (1.005-1.025); Urobilinogen NEGATIVE mg/dL (0-1)
[2018-10-26 21:50] VITALS: O2SAT 97
[2018-10-26 21:58] VITALS: BP 129/78
--- NOTE | 2018-10-27 08:49 | XRAY ---
Indication: Dizziness. Rule out CVA. Multiple contiguous axial images obtained through the head without contrast. Comparison: None Age-appropriate global atrophy and minimal periventricular degenerative micro-ischemia bilaterally. No acute intracranial hemorrhage, abnormal extra-axial fluid collection, or mass effect. Fourth ventricle is midline without hydrocephalus. Bony calvarium intact. Visualized paranasal sinuses and mastoid air cells are clear. Impression: Normal aging brain including atrophy and degenerative micro-ischemia. No acute intracranial abnormalities. CT DI 66.81
== END 2018-10-26 22:06 | disposition home or self-care (01) ==
LOC: ED 19:10
DX: R42 Dizziness and giddiness (principal); E87.6 Hypokalemia
CPT/HCPCS: 36000; 36415; 70450; 80053; 81001; 84484; 85025; 93005; 96360; 99284; A9270-GY

== ENCOUNTER 2020-10-08 12:05 | Emergency (ER) | payer MEDICARE, OTHER ==
--- NOTE | 2020-10-08 12:23 | ERPHSYRPT ---
- History of Present Illness Time Seen by Provider: 10/08/20 12:12 Source: patient Exam Limitations: no limitations Physician History: The patient is an 80-year-old female with a past medical history significant for hypertension and hypothyroidism presents with a chief complaint of chest pain. Onset reportedly was yesterday and the day prior. She endorsed having a brief less than 1 minute episode chest pain that is described as a sharp pain located just lateral to her left breast. The pain resolved spontaneously. She had a similar episode of pain 2 days prior. She denies shortness of breath, cough, fever, nausea, vomiting, lightheadedness, syncope or diaphoresis. She denies any known coronary artery disease. She reportedly checked her blood pressure this morning he got a elevated reading he decided to come to the emergency department to get checked out. Currently, she is asymptomatic. She states she is been taking her medications as prescribed. Timing/Duration: yesterday Associated Symptoms: denies symptoms, chest pain, No nausea, No vomiting, No abdominal pain, No cough, No chills, No fever, No headaches Allergies/Adverse Reactions: No Known Drug Allergies Allergy (Verified 10/08/20 12:23) Home Medications: Aspirin EC 81 mg [Ecotrin 81 mg] 81 mg PO DAILY 05/30/17 [History] Cetirizine HCl [Zyrtec] 10 mg PO DAILY 05/30/17 [History] Levothyroxine Sodium [Levoxyl] 100 mcg PO DAILY 05/30/17 [History] Metoprolol Succinate 100 mg PO DAILY 05/30/17 [History] Rosuvastatin Calcium 5 mg PO DAILY 05/30/17 [History] Triamterene/Hydrochlorothiazid [Triamterene-Hctz 75-50 mg Tab] 1 ea PO DAILY 05/30/17 [History] Hx Tetanus, Diphtheria Vaccination/Date Given: No Hx Influenza Vaccination/Date Given: Yes Hx Pneumococcal Vaccination/Date Given: Yes - Review of Systems Constitutional: No Fever, No Chills Eyes: No No Symptoms Respiratory: No Cough, No Cyanosis, No Dyspnea Cardiac: Chest Pain Abdominal/Gastrointestinal: No Abdominal Pain, No Nausea, No Vomiting Genitourinary Symptoms: No Symptoms Musculoskeletal: No Symptoms Skin: No Symptoms Neurological: No Symptoms Psychological: No Symptoms Immunological/Allergic: No Symptoms All Other Systems: Reviewed and Negative - Past Medical History Pertinent Past Medical History: Yes Neurological History: No Pertinent History ENT History: Macular Degeneration Cardiac History: Hypertension Respiratory History: No Pertinent History Endocrine Medical History: Hypothyroidism Musculoskeletal History: Arthritis GI Medical History: Diverticulitis, GERD, Other History: No Pertinent History Psycho-Social History: No Pertinent History Female Reproductive Disorders: No Pertinent History Other Medical History: L and R total knee 2009 - Past Surgical History Past Surgical History: Yes Neuro Surgical History: No Pertinent History Cardiac: No Pertinent History Respiratory: No Pertinent History Gastrointestinal: Appendectomy, Cholecystectomy Genitourinary: No Pertinent History Musculoskeletal: Orthopedic Surgery Female Surgical History: Hysterectomy, Lumpectomy Other Surgical History: both knee replaced - Social History Smoking Status: Former smoker Exposure to second hand smoke: No Drug Use: none Patient Lives Alone: No - Nursing Vital Signs Nursing Vital Signs: Initial Vital Signs Temperature 97.5 F 10/08/20 12:15 Pulse Rate 62 10/08/20 12:15 Respiratory Rate 16 10/08/20 12:15 Blood Pressure 161/88 10/08/20 12:15 O2 Sat by Pulse Oximetry 98 10/08/20 12:15 Pain Scale Pain Intensity 0 - Physical Exam General Appearance: no apparent distress, alert Eye Exam: PERRL/EOMI Ears, Nose, Throat Exam: normal ENT inspection Neck Exam: non-tender, supple Respiratory Exam: normal breath sounds, lungs clear, airway intact, No chest tenderness, No respiratory distress, No prolonged expirations, No crackles/rales, No rhonchi, No wheezing, No stridor Cardiovascular Exam: regular rate/rhythm, normal heart sounds, normal peripheral pulses, capillary refill <2 sec, other (Bilateral and symmetric nonpitting edema in both lower extremities), No murmur, No friction rub, No gallop Gastrointestinal/Abdomen Exam: soft Pelvic Exam: not done Rectal Exam: deferred Back Exam: normal inspection Extremity Exam: normal inspection, other (No asymmetric lower extremity swelling, calf tenderness or erythema to suggest DVT.), No tenderness Neurologic Exam: alert, oriented x 3, cooperative - Course Nursing assessment & vital signs reviewed: Yes EKG Interpreted by Me: RATE, Left [place] Deviation, Other (Negative for STEMI) - Radiology Exams Chest X-ray Interpretation: Reviewed by me, Negative Ordered Tests: Active Orders 24 hr Category Date Time Status Anesthesiologist Assistant Certified STAT Care 10/08/20 12:29 Active EKG-ER Only STAT Care 10/08/20 12:29 Active Pulse Oximetry (ED) STAT Care 10/08/20 12:29 Active CHEST 2 VIEWS (PA AND LAT) Stat Exams 10/08/20 12:29 Completed BMP Stat Lab 10/08/20 12:43 Completed CBC W DIFF Stat Lab 10/08/20 12:43 Completed LIPASE Stat Lab 10/08/20 12:43 Completed TROPONIN Stat Lab 10/08/20 12:43 Completed Lab/Rad Data: Laboratory Result Diagrams 10/08/20 12:43 10/08/20 12:43 Laboratory Results 10/08/20 10/08/20 Range/Units 12:43 12:43 WBC 4.6 (4.0-10.5) K/mm3 RBC 4.16 (4.1-5.4) M/mm3 Hgb 12.8 (12.0-16.0) gm/dl Hct 39.8 (35-47) % MCV 95.7 (78-100) fl MCH 30.8 (26-32) pg MCHC 32.2 (32-36) g/dl RDW 13.2 (11.5-14.0) % Plt Count 287 (150-450) K/mm3 MPV 9.9 (7.5-11.0) fl Gran % 45.6 (36.0-66.0) % Eos # (Auto) 0.17 (0-0.5) Absolute Lymphs (auto) 1.74 (1.0-4.6) Absolute Monos (auto) 0.58 (0.0-1.3) Lymphocytes % 37.7 (24.0-44.0) % Monocytes % 12.6 H (0.0-12.0) % Eosinophils % 3.7 (0.00-5.0) % Basophils % 0.4 (0.0-0.4) % Absolute Granulocytes 2.11 (1.4-6.9) Basophils # 0.02 (0-0.4) Sodium 132 L (137-145) mmol/L Potassium 4.4 (3.5-5.1) mmol/L Chloride 97 L (98-107) mmol/L Carbon Dioxide 27 (22-30) mmol/L Anion Gap 13.0 (5-15) MEQ/L BUN 12 (7-17) mg/dL Creatinine 1.13 H (0.52-1.04) mg/dL Estimated GFR 49.2 ML/MIN Glucose 96 (74-106) mg/dL Calcium 10.4 H (8.4-10.2) mg/dL Troponin I 0.019 (0.000-0.034) ng/mL Lipase 46 (23-300) U/L - Progress Progress: unchanged Progress Note: 10/08/20 12:39 Nontoxic in appearance. Currently, the patient is asymptomatic and has been asymptomatic since yesterday. Her chest pain complaint seems atypical for ACS and I currently have a low suspicion for an aortic dissection in addition to a PE at this time. EKG showed no evidence of STEMI. Blood pressure was 166 mmHg systolic and this is not consistent with a hypertensive emergency. Evidence of zoster rash on her chest wall. I will check basic labs to include CBC, BMP, troponin and a chest x-ray for further evaluation. Believe if her work-up is relatively benign, she can be discharged home to follow-up with her PCP. 10/08/20 12:42 EKG today appears similar to an EKG obtained in 2019. 10/08/20 13:24 The patient's creatinine is 1.13 and in September 2018 it was 1.09 and this is not far from her baseline. 10/08/20 13:25 The patient serum sodium was 132 down from 137 in 2019. She is on triamterene/HCTZ and the HCTZ is known to cause hyponatremia. I recommend the patient continue to have her serum sodium monitored as an outpatient. She is currently asymptomatic from her hyponatremia at this time. This may have developed over the last couple years since her serum sodium was checked. - Departure Departure Disposition: Home Clinical Impression: Atypical chest pain, Essential hypertension, Hyponatremia Condition: Stable Critical Care Time: No Referrals: Seda JANE [Primary Care Provider] - Instructions: High Blood Pressure in Adults, Chest Pain That Is Not Caused by the Heart (DC), Hyponatremia Additional Instructions: These follow-up with your primary care provider as an outpatient to have your serum sodium monitored. You may need to switch blood pressure medications, specifically the medication that contains hydrochlorothiazide. If you start to develop any confusion, headaches or generalized weakness please return to the emergency department immediately to be reevaluated.
[2020-10-08 12:53] LABS: Absolute Neutrophil Ct (ANC) 2.11 (1.4-6.9); BASOPHIL % 0.4 % (0.0-0.4); Basophil (Absolute #) 0.02 (0-0.4); Eosinophil % 3.7 % (0.00-5.0); Eosinophil (Absolute #) 0.17 (0-0.5); Hematocrit 39.8 % (35-47); Hemoglobin 12.8 gm/dl (12.0-16.0); Lymphocyte (Absolute #) 1.74 (1.0-4.6); Lymphocytes % 37.7 % (24.0-44.0); Mean Cell Volume 95.7 fl (78-100); Mean Corpuscular Hemoglobin 30.8 pg (26-32); Mean Corpuscular Hgb Concent. 32.2 g/dl (32-36); Mean Platelet Volume 9.9 fl (7.5-11.0); Monocyte (Absolute #) 0.58 (0.0-1.3); Monocytes % 12.6 % (0.0-12.0); Neutrophil % 45.6 % (36.0-66.0); Platelet Count 287 K/mm3 (150-450); Red Blood Count 4.16 M/mm3 (4.1-5.4); Red Cell Distribution Width 13.2 % (11.5-14.0); White Blood Count 4.6 K/mm3 (4.0-10.5)
[2020-10-08 13:15] LABS: Calcium 10.4 mg/dL (8.4-10.2); Creatinine 1 1.13 mg/dL (0.52-1.04); EST GLOMERULAR FILTRATION RATE 49.2 ML/MIN; Potassium 4.4 mmol/L (3.5-5.1); TROPONIN 0.019 ng/mL (0.000-0.034)
--- NOTE | 2020-10-08 13:28 | XRAY ---
Exam: Two-view chest from 10/08/2020. Comparison: Two-view chest from 05/30/2017. Indication: 80-year-old female with chest pain. Findings: The heart size appears mildly enlarged with some left ventricular prominence. Calcification of the aortic arch and mild tortuosity of the descending thoracic aorta are again seen. The remainder of the jewel and mediastinal structures appears unremarkable. A small calcified granuloma within the right upper lobe is partially obscured by an EKG leads. There are some mild increased markings at both lung bases, likely due to mild scarring and/or subsegmental atelectasis. A confluent airspace infiltrate is not seen. No central vascular congestion, pneumothorax, or pleural fluid is seen. Surgical clips consistent with prior cholecystectomy are seen within the right upper quadrant. Bone demineralization, probable pectus excavatum, mild mid thoracic dextroscoliosis and thoracic spondylosis are seen. There is also at least mild mid lumbar rotary convexity toward the left. Impression: 1. Mild cardiomegaly with some left ventricular prominence is again seen. However, I see no findings to suggest acute CHF or pulmonary edema. 2. Minimal increased linear markings are seen at both lung bases, likely due to scarring and/or plate atelectasis. A confluent airspace infiltrate is not seen. 3. Skeletal findings, as discussed above.
[2020-10-08 13:29] VITALS: BP 121/75; PULSE 57; O2SAT 97
== END 2020-10-08 13:50 | disposition home or self-care (01) ==
LOC: ED 12:05
DX: R07.89 Other chest pain (principal); E87.1 Hypo-osmolality and hyponatremia; I10 Essential (primary) hypertension; E03.9 Hypothyroidism, unspecified; Z79.899 Other long term (current) drug therapy
CPT/HCPCS: 36415; 71046; 80048; 83690; 84484; 85025; 93005; 93041; 94760; 99284

== ENCOUNTER 2021-07-05 09:14 | Emergency (ER) | payer MEDICARE, OTHER ==
--- NOTE | 2021-07-05 09:28 | ERPHSYRPT ---
- History of Present Illness Time Seen by Provider: 07/05/21 09:27 Source: patient Exam Limitations: no limitations Physician History: This is a right-handed 81-year-old white female who has a history of hypothyroidism, elevated cholesterol and hypertension and presents to the emergency department with 1 week history of intermittent right hand pain and swelling. Patient denies any specific injury to the area. She has no history of gout. She also has never had anything like this before. Patient denies chest pain. She denies shortness of breath. She denies fevers. Occurred: last week Method of Injury: other (No specific injury) Quality: intermittent, aching, other (Intermittent swelling) Severity of Pain-Max: moderate Severity of Pain-Current: mild (Moderate) Extremities Pain Location: hand: right Modifying Factors: Improves With: movement Associated Symptoms: none Allergies/Adverse Reactions: No Known Drug Allergies Allergy (Verified 07/05/21 09:30) Home Medications: Aspirin EC 81 mg [Ecotrin 81 mg] 81 mg PO DAILY 05/30/17 [History] Cetirizine HCl [Zyrtec] 10 mg PO DAILY 05/30/17 [History] Levothyroxine Sodium [Levoxyl] 100 mcg PO DAILY 05/30/17 [History] Metoprolol Succinate 100 mg PO DAILY 05/30/17 [History] Rosuvastatin Calcium 5 mg PO DAILY 05/30/17 [History] Triamterene/Hydrochlorothiazid [Triamterene-Hctz 75-50 mg Tab] 1 ea PO DAILY 05/30/17 [History] Hx Tetanus, Diphtheria Vaccination/Date Given: No Hx Influenza Vaccination/Date Given: Yes Hx Pneumococcal Vaccination/Date Given: Yes Travel Risk - International Travel Have you traveled outside of the country in past 3 weeks: No - Coronavirus Screening Are you exhibiting any of the following symptoms?: No Close contact with a COVID-19 positive Pt in past 14-21 Days: No - Vaccine Status Have you recieved a Covid-19 vaccination: Yes [place]: Moderna - Vaccination Dates Date of 2cond Vaccination (if applicable): may - Review of Systems Constitutional: No Symptoms Eyes: No Symptoms Ears, Nose, & Throat: No Symptoms Respiratory: No Symptoms Cardiac: No Symptoms Abdominal/Gastrointestinal: No Symptoms Genitourinary Symptoms: No Symptoms Musculoskeletal: Other (Intermittent right hand pain and swelling in the last week) Skin: No Symptoms Neurological: No Symptoms Psychological: No Symptoms Endocrine: No Symptoms Hematologic/Lymphatic: No Symptoms Immunological/Allergic: No Symptoms All Other Systems: Reviewed and Negative - Past Medical History Pertinent Past Medical History: Yes Neurological History: No Pertinent History ENT History: Macular Degeneration Cardiac History: Hypertension Respiratory History: No Pertinent History Endocrine Medical History: Hypothyroidism Musculoskeletal History: Arthritis GI Medical History: Diverticulitis, GERD, Other History: No Pertinent History Psycho-Social History: No Pertinent History Female Reproductive Disorders: No Pertinent History Other Medical History: L and R total knee 2009 - Past Surgical History Past Surgical History: Yes Neuro Surgical History: No Pertinent History Cardiac: No Pertinent History Respiratory: No Pertinent History Gastrointestinal: Appendectomy, Cholecystectomy Genitourinary: No Pertinent History Musculoskeletal: Orthopedic Surgery Female Surgical History: Hysterectomy, Lumpectomy Other Surgical History: both knee replaced - Social History Smoking Status: Former smoker Exposure to second hand smoke: No Drug Use: none Patient Lives Alone: No - Nursing Vital Signs Nursing Vital Signs: Initial Vital Signs Temperature 98.2 F 07/05/21 09:21 Pulse Rate 71 07/05/21 09:21 Respiratory Rate 20 07/05/21 09:21 Blood Pressure 174/88 07/05/21 09:21 O2 Sat by Pulse Oximetry 96 07/05/21 09:21 Pain Scale Pain Intensity 0 - Physical Exam General Appearance: no apparent distress, alert, anxiety Eyes, Ears, Nose, Throat Exam: normal ENT inspection, moist mucous membranes Neck Exam: normal inspection, non-tender, supple, full range of motion Cardiovascular/Respiratory Exam: chest non-tender, no respiratory distress Abdominal Exam: non-tender Back Exam: normal inspection, normal range of motion, No CVA tenderness, No vertebral tenderness Shoulder Exam: normal inspection, non-tender, no evidence of injury, normal ROM Elbow/Forearm Exam: normal inspection, non-tender, no evidence of injury, normal ROM Wrist Exam: normal inspection, non-tender, no evidence of injury, normal ROM Hand Exam: normal inspection (Patient says today she has no swelling and no tenderness. However, she said I could change liters afternoon and evening), no evidence of injury, normal ROM, No deformity Neuro/Tendon Exam: normal sensation, normal motor functions, normal tendon functions, responds to pain Mental Status Exam: alert, oriented x 3, cooperative Skin Exam: normal color, warm, dry SpO2 Interpretation: normal O2 Delivery: Room Air - Course Nursing assessment & vital signs reviewed: Yes Ordered Tests: Active Orders 24 hr Category Date Time Status HAND (MINIMUM 3 VIEWS) Stat Exams 07/05/21 09:30 Taken CBC W DIFF Stat Lab 07/05/21 09:39 Completed Uric Acid Stat Lab 07/05/21 09:39 Completed Medication Summary Discontinued Medications Generic Name Dose Route Start Last Admin Trade Name Akilah PRN Reason Stop Dose Admin Hydrocodone Bitart/Acetaminophen 1 tab 07/05/21 10:04 07/05/21 10:10 Hydrocodone/Apap 5/325 Mg Tablet PO 07/05/21 10:05 1 tab STAT ONE Administration Hydrocodone Bitart/Acetaminophen Confirm 07/05/21 10:09 Hydrocodone/Apap 5/325 Mg Tablet Administered 07/05/21 10:10 Dose 1 tab .ROUTE .STK-MED ONE Prednisone 10 mg 07/05/21 10:06 07/05/21 10:10 Prednisone 10 Mg Tablet PO 07/05/21 10:07 10 mg STAT ONE Administration Prednisone Confirm 07/05/21 10:09 Prednisone 20 Mg Tablet Administered 07/05/21 10:10 Dose 20 mg .ROUTE .STK-MED ONE Lab/Rad Data: Laboratory Result Diagrams 07/05/21 09:39 Laboratory Results 07/05/21 07/05/21 Range/Units 09:39 09:39 WBC 5.6 (4.0-10.5) K/mm3 RBC 4.15 (4.1-5.4) M/mm3 Hgb 13.3 (12.0-16.0) gm/dl Hct 39.9 (35-47) % MCV 96.1 (78-100) fl MCH 32.0 (26-32) pg MCHC 33.3 (32-36) g/dl RDW 12.2 (11.5-14.0) % Plt Count 276 (150-450) K/mm3 MPV 9.6 (7.5-11.0) fl Gran % 60.4 (36.0-66.0) % Eos # (Auto) 0.19 (0-0.5) Absolute Lymphs (auto) 1.54 (1.0-4.6) Absolute Monos (auto) 0.48 (0.0-1.3) Lymphocytes % 27.3 (24.0-44.0) % Monocytes % 8.5 (0.0-12.0) % Eosinophils % 3.4 (0.00-5.0) % Basophils % 0.4 (0.0-0.4) % Absolute Granulocytes 3.41 (1.4-6.9) Basophils # 0.02 (0-0.4) Uric Acid 5.7 (2.6-6.0) mg/dL - Progress Progress: pain not gone completely Progress Note: 07/05/21 10:00 X-ray right hand reveals arthritic changes no obvious acute, occult fracture. Counseled pt/family regarding: diagnosis, need for follow-up, rad results - Departure Departure Disposition: Home Clinical Impression: Rheumatoid arthritis flare Condition: Stable Critical Care Time: No Referrals: Seda JANE [Primary Care Provider] - Follow up/PCP as directed Additional Instructions: Take medication as prescribed. Follow-up with your primary, prescribing provider on 07/07/2021 for further evaluation and management. Prescriptions: Hydrocodone/APAP 5/325 [[place] 5/325 mg] 1 each PO Q12H PRN PRN #6 tablet MDD 2 PRN Reason: Pain Prednisone 10 mg [Deltasone 10 mg] 10 mg PO TID #12 tablet
[2021-07-05 09:55] LABS: Absolute Neutrophil Ct (ANC) 3.41 (1.4-6.9); Basophil (Absolute #) 0.02 (0-0.4); Eosinophil % 3.4 % (0.00-5.0); Eosinophil (Absolute #) 0.19 (0-0.5); Hematocrit 39.9 % (35-47); Hemoglobin 13.3 gm/dl (12.0-16.0); Lymphocyte (Absolute #) 1.54 (1.0-4.6); Lymphocytes % 27.3 % (24.0-44.0); Mean Cell Volume 96.1 fl (78-100); Mean Corpuscular Hgb Concent. 33.3 g/dl (32-36); Mean Platelet Volume 9.6 fl (7.5-11.0); Monocyte (Absolute #) 0.48 (0.0-1.3); Monocytes % 8.5 % (0.0-12.0); Neutrophil % 60.4 % (36.0-66.0); Platelet Count 276 K/mm3 (150-450); Red Blood Count 4.15 M/mm3 (4.1-5.4); Red Cell Distribution Width 12.2 % (11.5-14.0); White Blood Count 5.6 K/mm3 (4.0-10.5)
[2021-07-05] MEDS ORDERED: NORCO 5/325 MG PO ONE (10:04)
[2021-07-05] MEDS ORDERED: DELTASONE 10 MG PO ONE (10:06)
[2021-07-05] MEDS ORDERED: NORCO 5/325 MG ONE (10:09)
[2021-07-05] MEDS ORDERED: DELTASONE 20 MG ONE (10:09)
[2021-07-05 10:28] VITALS: BP 136/71; PULSE 53; O2SAT 98
--- NOTE | 2021-07-05 19:12 | XRAY ---
Indication: Pain. No known injury. Comparison: None 3 view right hand demonstrates osteopenia, mild degenerative changes all IP/2nd/3rd MCP joints, and moderate/advanced 1st metacarpal multangular scaphoid degenerative changes with heterotopic ossifications. No other bony, articular, or soft tissue abnormalities.
== END 2021-07-05 10:40 | disposition home or self-care (01) ==
LOC: ED 09:14
DX: M06.9 Rheumatoid arthritis, unspecified (principal); M79.641 Pain in right hand; E78.5 Hyperlipidemia, unspecified; I10 Essential (primary) hypertension; Z79.891 Long term (current) use of opiate analgesic; Z79.52 Long term (current) use of systemic steroids; Z79.899 Other long term (current) drug therapy
CPT/HCPCS: 36415; 73130; 84550; 85025; 99284; A9270-GY

== ENCOUNTER 2022-04-15 11:53 | Observation (INO) | payer MEDICARE, OTHER ==
[2022-04-15 12:43] LABS: Absolute Neutrophil Ct (ANC) 1.63 x10^3/uL (1.4-6.9); Basophil (Absolute #) 0.03 x10^3/uL (0-0.4); Eosinophil % 3.2 % (0.00-5.0); Eosinophil (Absolute #) 0.11 x10^3/uL (0-0.5); Hematocrit 35.5 % (35-47); Hemoglobin 11.4 g/dL (12.0-16.0); Lymphocyte (Absolute #) 1.11 x10^3/uL (1.0-4.6); Lymphocytes % 32.4 % (24.0-44.0); Mean Cell Volume 97.8 fL (78-100); Mean Corpuscular Hemoglobin 31.4 pg (26-32); Mean Corpuscular Hgb Concent. 32.1 g/dL (32-36); Mean Platelet Volume 9.7 fL (7.5-11.0); Monocyte (Absolute #) 0.55 x10^3/uL (0.0-1.3); Neutrophil % 47.5 % (36.0-66.0); Platelet Count 214 x10^3/uL (150-450); Red Blood Count 3.63 x10^6/uL (4.1-5.4); Red Cell Distribution Width 12.6 % (11.5-14.0); White Blood Count 3.4 x10^3/uL (4.0-10.5)
--- NOTE | 2022-04-15 12:53 | XRAY ---
Indication: Short of breath. Comparison: October 08, 2020 Portable chest demonstrates new mild bibasilar infiltrates/atelectasis/effusions, left greater than right. Remaining heart and lungs unremarkable again with incidental right apical calcified granuloma. Bony thorax intact with osteopenia and degenerative changes.
[2022-04-15 13:06] LABS: ALKALINE PHOSPHATASE 70 U/L (38-126); ANION GAP 8.6 MEQ/L (5-15); BLOOD UREA NITROGEN 15 mg/dL (7-17); CHLORIDE 105 mmol/L (98-107); Calcium 10.1 mg/dL (8.4-10.2); Carbon Dioxide 25 mmol/L (22-30); Creatinine 1 0.88 mg/dL (0.52-1.04); EST GLOMERULAR FILTRATION RATE > 60.0 ML/MIN; Glucose 101 mg/dL (74-106); MAGNESIUM 1.9 mg/dL (1.6-2.3); NT PRO BNP 1490 pg/mL (0-1800); Potassium 4.5 mmol/L (3.5-5.1); SGOT/AST 34 U/L (14-36); SGPT/ALT 22 U/L (0-35); SODIUM 134 mmol/L (137-145); Total Protein 6.8 g/dL (6.3-8.2)
--- NOTE | 2022-04-15 13:13 | ERPHSYRPT ---
- History of Present Illness Source: patient, other () Patient Subjective Stated Complaint: BLE edema for the past few days with some SOB when lying flat in bed last night. Triage Nursing Assessment: Patient ambulated back to ED. She is alert and oriented. No SOB. Edema noted to BLE. Skin tone normal. DARA ADAMS. After speaking with patient and reviewing medications with her, it was found that she is not currently taking a diuretic at home but she is on a K+ supplement. Patient believes that she is supposed to be taking a diuretic at home but that some how her medications must have become messed up after her last check-up on 03/03/[address] Jane's office. Physician History: 81 yo wf w B LE edema x 3 days. She had mild PND at about 2AM but has not been dyspneic, otherwise. Pt denies chest pain/N/V/diaphoresis/fever/cough/coryza/melena/hematochezia. Pt's Maxide was accidentally stopped after her PCP appointment in Feb. She has HTN/hyperlipidemia but denies CHF/CT/stents/tobacco use. Method of Injury: other Occurred: days ago (3 days) Quality: constant Severity of Pain-Max: none Severity of Pain-Current: none Modifying Factors: Improves With: nothing Associated Symptoms: none Allergies/Adverse Reactions: No Known Drug Allergies Allergy (Verified 04/15/22 11:58) Home Medications: Aspirin EC 81 mg [Ecotrin 81 mg] 81 mg PO DAILY 05/30/17 [History] Atorvastatin Calcium [Lipitor] 1 tab PO DAILY 04/15/22 [History] Levothyroxine Sodium 1 tab PO DAILY 04/15/22 [History] Metoprolol Succinate 100 mg [Toprol Xl 100 MG] 1 tab PO DAILY 04/15/22 [History] Potassium Chloride [Klor-Con 10] 3 tab PO BID 04/15/22 [History] Hx Tetanus, Diphtheria Vaccination/Date Given: Yes Hx Influenza Vaccination/Date Given: Yes Hx Pneumococcal Vaccination/Date Given: No Immunizations Up to Date: Yes Travel Risk - International Travel Have you traveled outside of the country in past 3 weeks: No - Coronavirus Screening Are you exhibiting any of the following symptoms?: No Close contact with a COVID-19 positive Pt in past 14-21 Days: No - Vaccine Status Have you recieved a Covid-19 vaccination: Yes Health Care Attorney: Moderna - Vaccination Dates Date of 2cond Vaccination (if applicable): may - Review of Systems Constitutional: No Symptoms Eyes: No Symptoms Ears, Nose, & Throat: No Symptoms Respiratory: No Symptoms Cardiac: No Symptoms, PND Abdominal/Gastrointestinal: No Symptoms Genitourinary Symptoms: No Symptoms Musculoskeletal: No Symptoms Skin: No Symptoms Neurological: No Symptoms Psychological: No Symptoms Endocrine: No Symptoms Hematologic/Lymphatic: No Symptoms Immunological/Allergic: No Symptoms - Past Medical History Pertinent Past Medical History: Yes Neurological History: No Pertinent History ENT History: Macular Degeneration Cardiac History: High Cholesterol, Hypertension Respiratory History: No Pertinent History Endocrine Medical History: Hypothyroidism Musculoskeletal History: Arthritis GI Medical History: Diverticulitis, GERD, Other History: No Pertinent History Psycho-Social History: No Pertinent History Female Reproductive Disorders: No Pertinent History Other Medical History: L and R total knee 2008 - Past Surgical History Past Surgical History: Yes Neuro Surgical History: No Pertinent History Cardiac: No Pertinent History Respiratory: No Pertinent History Gastrointestinal: Appendectomy, Cholecystectomy Genitourinary: No Pertinent History Musculoskeletal: Orthopedic Surgery Female Surgical History: Hysterectomy, Lumpectomy Other Surgical History: both knee replaced - Social History Smoking Status: Former smoker Exposure to second hand smoke: No Drug Use: none Patient Lives Alone: No - Nursing Vital Signs Nursing Vital Signs: Initial Vital Signs Temperature 96.7 F 04/15/22 11:53 Pulse Rate 78 04/15/22 11:53 Respiratory Rate 18 04/15/22 11:53 Blood Pressure 184/95 04/15/22 11:53 O2 Sat by Pulse Oximetry 95 04/15/22 11:53 Pain Scale Pain Intensity 0 Hypertensive - Physical Exam General Appearance: no apparent distress Eyes, Ears, Nose, Throat Exam: normal ENT inspection, TMs normal, pharynx normal, moist mucous membranes Neck Exam: normal inspection, non-tender, supple, full range of motion, No Brudzinski, No Kernig's, No meningismus Cardiovascular/Respiratory Exam: regular rate/rhythm, heart sounds normal, rales (Faint rales L base) Gastrointestinal/Abdominal Exam: non-tender, soft Back Exam: normal inspection, normal range of motion Hips Exam: bilateral: non-tender, normal inspection, normal range of motion, no evidence of injury Legs Exam: bilateral leg: swelling (2+ pre-tibial edema B) Knees Exam: bilateral knee: non-tender, normal inspection, normal range of motion, no evidence of injury Ankle Exam: bilateral ankle: swelling (2+ edema B) Foot Exam: bilateral foot: swelling Neuro/Tendon Exam: normal sensation, normal motor functions, normal tendon functions, responds to pain, no evidence tendon injury Mental Status Exam: alert, oriented x 3, cooperative Skin Exam: normal color, warm, dry SpO2 Interpretation: normal SpO2: 95 O2 Delivery: Room Air - Course Nursing assessment & vital signs reviewed: Yes EKG Interpreted by Me: RATE (NSR/Normal QT-QTc/RBBB/No acute ST segment changes) - Radiology Exams Chest X-ray Interpretation: Discussed w/ radiologist (Bibasilar atelectasis/effus ions/Infiltrates/L>R) - CT Exams Chest CT Interpretation: Discussed w/radiologist (CT chest wo/pulmonary edema w B effusions) Ordered Tests: Active Orders 24 hr Category Date Time Status Bedrest with BRP/BSC TOLERATED Activity 04/15/22 16:05 Ordered Code Status Order ROUTINE Care 04/15/22 16:05 Ordered EKG-ER Only STAT Care 04/15/22 12:21 Active Fall Protocol Q1H Care 04/15/22 16:11 Ordered IV Care Q6H Care 04/15/22 16:05 Ordered Implement CHF Pathway ROUTINE Care 04/15/22 16:05 Ordered Intake and Output 09,13,18,21 Care 04/15/22 16:05 Ordered Oxygen-ED Only Nasal Cannula 2 lpm Care 04/15/22 14:[address] in Observation ROUTINE Care 04/15/22 16:05 Ordered Vital Signs Q4H Care 04/15/22 16:10 Ordered Weight,Daily 0600 Care 04/15/22 16:05 Ordered Consistent Carbohydrate Diet 2000 Calorie Diet 04/16/22 Breakfast Ordered CHEST 1 VIEW (PORTABLE) Stat Exams 04/15/22 12:21 Completed CHEST WITHOUT CONTRAST [CT] Stat Exams 04/15/22 13:38 Completed ECHO W/2D AND DOPPLER [US] Routine Exams 04/15/22 16:11 Ordered BMP AM.LAB Lab 04/16/22 04:00 Ordered CBC AM.LAB Lab 04/16/22 04:00 Ordered CBC W DIFF Stat Lab 04/15/22 12:38 Completed CMP Stat Lab 04/15/22 12:38 Completed CULTURE,URINE Stat Lab 04/15/22 13:43 Received MAGNESIUM Stat Lab 04/15/22 12:38 Completed NT PRO BNP AM.LAB Lab 04/16/22 04:00 Ordered NT PRO BNP Stat Lab 04/15/22 12:38 Completed T4 (Thyroxine) Stat Lab 04/15/22 Ordered TROPONIN Q4H Lab 04/15/22 12:38 Completed TROPONIN Q4H Lab 04/15/22 14:51 Completed TROPONIN Q4H Lab 04/15/22 20:30 Ordered TSH [TSH, 3RD Generation] Stat Lab 04/15/22 16:14 Ordered UA W/RFX UR CULTURE Stat Lab 04/15/22 13:43 Completed Oxygen NASAL CANNULA 2 lpm RT 04/15/22 16:05 Ordered Transfer Order Routine Transfer 04/15/22 Ordered Medication Summary Generic Name Dose Route Start Last Admin Trade Name Freq PRN Reason Stop Dose Admin Enalapril Maleate 10 mg 04/16/22 10:00 Enalapril Maleate 10 Mg 10 Mg Tablet PO 05/16/22 09:59 DAILY KELLEY Enoxaparin Sodium 40 mg 04/16/22 10:00 Enoxaparin Sodium 40 Mg/0.4 Ml Syringe SQ 05/16/22 09:59 DAILY KELLEY Furosemide 40 mg 04/15/22 17:00 Furosemide 40 Mg Tablet PO 05/15/22 16:59 BID DIURETIC KELLEY Metoprolol Tartrate 50 mg 04/16/22 10:00 Metoprolol Tartrate 50 Mg Tablet PO 05/16/22 09:59 DAILY KELLEY Discontinued Medications Generic Name Dose Route Start Last Admin Trade Name Freq PRN Reason Stop Dose Admin Enalaprilat 1.25 mg 04/15/22 15:29 04/15/22 15:30 Enalaprilat 2.5 Mg Injection IV 04/15/22 15:30 1.25 mg STAT ONE Administration Enalaprilat Confirm 04/15/22 15:30 Enalaprilat 2.5 Mg Injection Administered 04/15/22 15:31 Dose 2.5 mg IV .STK-MED ONE Furosemide 40 mg 04/15/22 14:41 04/15/22 14:54 Furosemide 40 Mg/4 Ml Vial IV 04/15/22 14:42 40 mg STAT ONE Administration Furosemide Confirm 04/15/22 14:41 Furosemide 40 Mg/4 Ml Vial Administered 04/15/22 14:42 Dose 40 mg .ROUTE .STK-MED ONE Labetalol HCl 10 mg 04/15/22 14:39 04/15/22 14:54 Labetalol Hcl 20 Mg/4 Ml Disp.Syringe IV 04/15/22 14:40 Not Given STAT ONE Lab/Rad Data: Laboratory Result Diagrams 04/15/22 12:38 04/15/22 12:38 Laboratory Results 04/15/22 04/15/22 04/15/22 Range/Units 14:51 14:49 13:43 WBC (4.0-10.5) x10^3/uL RBC (4.1-5.4) x10^6/uL Hgb (12.0-16.0) g/dL Hct (35-47) % MCV (78-100) fL MCH (26-32) pg MCHC (32-36) g/dL RDW (11.5-14.0) % Plt Count (150-450) x10^3/uL MPV (7.5-11.0) fL Gran % (36.0-66.0) % Immature Gran % (Auto) (0.00-0.4) % Nucleat RBC Rel Count (0.00-0.1) % Eos # (Auto) (0-0.5) x10^3/uL Immature Gran # (Auto) (0.00-0.03) x10^3u/L Absolute Lymphs (auto) (1.0-4.6) x10^3/uL Absolute Monos (auto) (0.0-1.3) x10^3/uL Absolute Nucleated RBC (0.00-0.01) x10^3u/L Lymphocytes % (24.0-44.0) % Monocytes % (0.0-12.0) % Eosinophils % (0.00-5.0) % Basophils % (0.0-0.4) % Absolute Granulocytes (1.4-6.9) x10^3/uL Basophils # (0-0.4) x10^3/uL Sodium (137-145) mmol/L Potassium (3.5-5.1) mmol/L Chloride (98-107) mmol/L Carbon Dioxide (22-30) mmol/L Anion Gap (5-15) MEQ/L BUN (7-17) mg/dL Creatinine (0.52-1.04) mg/dL Estimated GFR ML/MIN Glucose (74-106) mg/dL Calcium (8.4-10.2) mg/dL Magnesium (1.6-2.3) mg/dL Total Bilirubin (0.2-1.3) mg/dL AST (14-36) U/L ALT (0-35) U/L Alkaline Phosphatase (38-126) U/L Troponin I 0.013 (0.000-0.034) ng/mL NT-Pro-B Natriuret Pep (0-1800) pg/mL Serum Total Protein (6.3-8.2) g/dL Albumin (3.5-5.0) g/dL Urine Color Yellow (Yellow) Urine Appearance Clear (Clear) Urine pH 6.5 (4.6-8.0) Ur Specific [place] <=1.005 (1.005-1.030) Urine Protein Negative (Negative) Urine Glucose (UA) Negative (Negative) mg/dL Urine Ketones Negative (Negative) Urine Blood Negative (Negative) Urine Nitrite Negative (Negative) Urine Bilirubin Negative (Negative) Urine Urobilinogen 0.2 (0.2) mg/dL Ur Leukocyte Esterase Trace A (Negative) U Hyaline Cast (Auto) NONE SEEN (0-2) /LPF Urine Microscopic RBC 0-2 (0-5) /HPF Urine Microscopic WBC 6-10 A (0-5) /HPF Ur Epithelial Cells Moderate A (None Seen) /HPF Urine Bacteria None Seen (None Seen) /HPF Urine Culture Reflexed YES (NO) Influenza Type A Ag NEGATIVE (NEGATIVE) Influenza Type B Ag NEGATIVE (NEGATIVE) RSV (PCR) NEGATIVE (Negative) SARS-CoV-2 (PCR) NEGATIVE (NEGATIVE) 04/15/22 04/15/22 04/15/22 Range/Units 12:38 12:38 12:38 WBC 3.4 L (4.0-10.5) x10^3/uL RBC 3.63 L (4.1-5.4) x10^6/uL Hgb 11.4 L (12.0-16.0) g/dL Hct 35.5 (35-47) % MCV 97.8 (78-100) fL MCH 31.4 (26-32) pg MCHC 32.1 (32-36) g/dL RDW 12.6 (11.5-14.0) % Plt Count 214 (150-450) x10^3/uL MPV 9.7 (7.5-11.0) fL Gran % 47.5 (36.0-66.0) % Immature Gran % (Auto) 0.0 (0.00-0.4) % Nucleat RBC Rel Count 0.0 (0.00-0.1) % Eos # (Auto) 0.11 (0-0.5) x10^3/uL Immature Gran # (Auto) 0.00 (0.00-0.03) x10^3u/L Absolute Lymphs (auto) 1.11 (1.0-4.6) x10^3/uL Absolute Monos (auto) 0.55 (0.0-1.3) x10^3/uL Absolute Nucleated RBC 0.00 (0.00-0.01) x10^3u/L Lymphocytes % 32.4 (24.0-44.0) % Monocytes % 16.0 H (0.0-12.0) % Eosinophils % 3.2 (0.00-5.0) % Basophils % 0.9 (0.0-0.4) % Absolute Granulocytes 1.63 (1.4-6.9) x10^3/uL Basophils # 0.03 (0-0.4) x10^3/uL Sodium 134 L (137-145) mmol/L Potassium 4.5 (3.5-5.1) mmol/L Chloride 105 (98-107) mmol/L Carbon Dioxide 25 (22-30) mmol/L Anion Gap 8.6 (5-15) MEQ/L BUN 15 (7-17) mg/dL Creatinine 0.88 (0.52-1.04) mg/dL Estimated GFR > 60.0 ML/MIN Glucose 101 (74-106) mg/dL Calcium 10.1 (8.4-10.2) mg/dL Magnesium 1.9 (1.6-2.3) mg/dL Total Bilirubin 0.80 (0.2-1.3) mg/dL AST 34 (14-36) U/L ALT 22 (0-35) U/L Alkaline Phosphatase 70 (38-126) U/L Troponin I 0.012 (0.000-0.034) ng/mL NT-Pro-B Natriuret Pep 1490 (0-1800) pg/mL Serum Total Protein 6.8 (6.3-8.2) g/dL Albumin 4.0 (3.5-5.0) g/dL Urine Color (Yellow) Urine Appearance (Clear) Urine pH (4.6-8.0) Ur Specific [place] (1.005-1.030) Urine Protein (Negative) Urine Glucose (UA) (Negative) mg/dL Urine Ketones (Negative) Urine Blood (Negative) Urine Nitrite (Negative) Urine Bilirubin (Negative) Urine Urobilinogen (0.2) mg/dL Ur Leukocyte Esterase (Negative) U Hyaline Cast (Auto) (0-2) /LPF Urine Microscopic RBC (0-5) /HPF Urine Microscopic WBC (0-5) /HPF Ur Epithelial Cells (None Seen) /HPF Urine Bacteria (None Seen) /HPF Urine Culture Reflexed (NO) Influenza Type A Ag (NEGATIVE) Influenza Type B Ag (NEGATIVE) RSV (PCR) (Negative) SARS-CoV-2 (PCR) (NEGATIVE) - Progress Progress: improved Progress Note: 04/15/22 16:[address] Whittington Pt admitted due to new onset of CHF 40mg IV Lasix w adequate diuresis 1.25mg IV Vasotec w improvement in blood pressure No evidence of acute CT Full code per pt Additional history per No food or housing insecurity Counseled pt/family regarding: lab results, diagnosis, need for follow-up, rad results - Departure Clinical Impression: Congestive heart disease Condition: Stable Critical Care Time: Yes Critical Care Time(excluding separately billable procedures): Critical 30-74 mins Referrals: Seda JANE [Primary Care Provider] - Follow up/PCP as directed Instructions: Heart Failure
--- NOTE | 2022-04-15 14:25 | XRAY ---
Indication: Short of breath. Leg swelling. Multiple contiguous axial images obtained through the chest without contrast. Comparison: None Lungs demonstrates bilateral pulmonary edema, small bilateral effusions, and bilateral mid to lower lung subsegmental atelectasis. Chronic findings including small right upper lobe calcific granuloma and anterior right upper lobe pleural thickening. Heart not enlarged with scattered coronary calcifications. Aorta is mildly arteriosclerotic without aneurysm. Tiny subcarinal and right hilar calcified nodes. No pathologic mediastinal lymphadenopathy. Bony thorax intact with osteopenia and mild/moderate degenerative changes throughout the spine. Limited upper abdomen demonstrates post cholecystectomy clips and tiny hepatic calcified granulomas. Impression: 1. Pulmonary edema and small bilateral effusions without cardiomegaly. Rule out noncardiogenic causes. 2. Chronic findings including right upper lobe pleural thickening, arteriosclerotic disease, chronic bony findings, and old granulomatous disease.
[2022-04-15 14:31] LABS: Appearance Clear (Clear); Bacteria None Seen /HPF (None Seen); Bilirubin Negative (Negative); Blood Negative (Negative); Epithelial Cells Moderate /HPF (None Seen); Glucose, Urine Negative (Negative); Hyaline Casts NONE SEEN /LPF (0-2); Ketones Negative (Negative); Leukocyte Esterase Trace (Negative); Nitrite Negative (Negative); Ph 6.5 (4.6-8.0); Protein,Urine Dip Negative (Negative); RBC 0-2 /HPF (0-5); Specific Gravity <=1.005 (1.005-1.030); Urobilinogen 0.2 mg/dL (0.2)
[2022-04-15 14:32] LABS: ADD URINE CULTURE? YES (NO)
[2022-04-15] MEDS ORDERED: TRANDATE 20 MG/4 ML SYRINGE IV ONE (14:39)
[2022-04-15] MEDS ORDERED: Lasix 40 MG/4 ML ONE (14:41)
[2022-04-15] MEDS ORDERED: Lasix 40 MG/4 ML IV ONE (14:41)
[2022-04-15] MEDS ORDERED: ENALAPRILAT 2.5 MG INJECTION IV ONE ×2 (15:29→15:30)
[2022-04-15 15:31] LABS: INFLUENZA A NEGATIVE (NEGATIVE); INFLUENZA B NEGATIVE (NEGATIVE); RESPIRATORY SYNCTIAL VIRUS NEGATIVE (Negative); SARS-CoV-2 Xpert Express NEGATIVE (NEGATIVE)
[2022-04-15] MEDS: Lasix 40 MG PO SCH (18:15)
[2022-04-16] MEDS ORDERED: Toprol Xl 100 MG PO ONE (00:41)
[2022-04-16 05:30] LABS: Hematocrit 35.2 % (35-47); Hemoglobin 11.4 g/dL (12.0-16.0); Mean Cell Volume 96.2 fL (78-100); Mean Corpuscular Hemoglobin 31.1 pg (26-32); Mean Corpuscular Hgb Concent. 32.4 g/dL (32-36); Mean Platelet Volume 9.9 fL (7.5-11.0); Platelet Count 218 x10^3/uL (150-450); Red Blood Count 3.66 x10^6/uL (4.1-5.4); Red Cell Distribution Width 12.8 % (11.5-14.0); White Blood Count 4.5 x10^3/uL (4.0-10.5)
[2022-04-16 06:16] LABS: ANION GAP 8.9 MEQ/L (5-15); BLOOD UREA NITROGEN 18 mg/dL (7-17); CHLORIDE 102 mmol/L (98-107); Calcium 9.7 mg/dL (8.4-10.2); Carbon Dioxide 27 mmol/L (22-30); Creatinine 1 0.89 mg/dL (0.52-1.04); EST GLOMERULAR FILTRATION RATE > 60.0 ML/MIN; Glucose 93 mg/dL (74-106); NT PRO BNP 1550 pg/mL (0-1800); Potassium 3.5 mmol/L (3.5-5.1); SODIUM 135 mmol/L (137-145)
--- NOTE | 2022-04-16 08:24 | PCM.HP ---
History of Present Illness - Chief Complaint Chief Complaint: CHF History of Present Illness: is a 81 year old female with no local physician, she presented with a several week history of worsening lower extremity edema, the night prior to arrival she woke and had an episode of PND, her dyspnea and swelling have improved since admission and diuresis. she is currently on 2L nasal cannula and in a sinus rhythm. - Review of Systems Constitutional: No Fever, No Chills Respiratory: Short Of Breath, No Cough Cardiac: Edema, Orthopnea, PND Skin: No Rash All Other Systems: Reviewed and Negative Medications & Allergies Home Medications: Home Medication List Aspirin EC 81 mg [Ecotrin 81 mg] 81 mg PO DAILY 05/30/17 [History Confirmed 04/15/22] Atorvastatin Calcium [Lipitor] 10 mg PO DAILY 04/15/22 [History Confirmed 04/15/22] Levothyroxine Sodium 112 mcg PO DAILY 04/15/22 [History Confirmed 04/15/22] Metoprolol Succinate 100 mg [Toprol Xl 100 MG] 100 mg PO DAILY 04/15/22 [History Confirmed 04/15/22] Potassium Chloride [Klor-Con 10] 30 mg PO BID 04/15/22 [History Confirmed 04/15/22] Allergies/Adverse Reactions: Allergies Allergy/AdvReac Type Severity Reaction Status Date / Time No Known Drug Allergies Allergy Verified 04/15/22 11:58 - Past Medical History Past Medical History: Yes Neurological History: No Pertinent History ENT History: Macular Degeneration Cardiac History: High Cholesterol, Hypertension Respiratory History: No Pertinent History Endocrine Medical History: Hypothyroidism Musculoskelatal History: Arthritis GI Medical History: Diverticulitis, GERD, Other History: No Pertinent History Pyscho-Social History: No Pertinent History Reproductive Disorders: No Pertinent History Comment: L and R total knee 2008 - Female History Are you now?: No - Past Surgical History Past Surgical History: Yes Neuro Surgical History: No Pertinent History Cardiac History: No Pertinent History Respiratory Surgery: No Pertinent History GI Surgical History: Appendectomy, Cholecystectomy Genitourinary Surgical Hx: No Pertinent History Musculskeletal Surgical Hx: Orthopedic Surgery Female Surgical History: Hysterectomy, Lumpectomy Other Surgical History: both knee replaced - Social History Smoking Status: Former smoker Exposure to second hand smoke: No Alcohol: None Drug Use: none - Physical Exam Vital Signs: Vital Signs - 24 hr Temp Pulse Resp BP Pulse Ox 04/16/22 07:40 97.5 F 69 16 138/67 93 L 04/16/22 04:00 97.6 F 66 20 133/67 95 04/16/22 01:15 78 04/16/22 00:00 97.8 F 121 H 16 163/86 97 04/15/22 20:00 97.3 F 71 18 147/65 96 04/15/22 17:10 66 173/83 92 L 04/15/22 16:18 95 04/15/22 15:14 64 18 191/104 97 04/15/22 14:39 70 20 191/84 90 L 04/15/22 13:53 68 193/113 92 L 04/15/22 12:53 72 20 198/97 94 L 04/15/22 11:53 96.7 F 78 18 184/95 95 General Appearance: no apparent distress, alert Neurologic Exam: alert, oriented x 3 Respiratory Exam: crackles/rales Cardiovascular Exam: regular rate/rhythm, normal heart sounds, normal peripheral pulses Gastrointestinal/Abdomen Exam: soft, normal bowel sounds, No tenderness, No mass Extremity Exam: pedal edema, swelling Results - Labs Lab/Micro Results: Lab Results-Last 24 Hours 04/15/22 04/15/22 04/15/22 Range/Units 12:38 12:38 12:38 WBC 3.4 L (4.0-10.5) x10^3/uL RBC 3.63 L (4.1-5.4) x10^6/uL Hgb 11.4 L (12.0-16.0) g/dL Hct 35.5 (35-47) % MCV 97.8 (78-100) fL MCH 31.4 (26-32) pg MCHC 32.1 (32-36) g/dL RDW 12.6 (11.5-14.0) % Plt Count 214 (150-450) x10^3/uL MPV 9.7 (7.5-11.0) fL Gran % 47.5 (36.0-66.0) % Immature Gran % (Auto) 0.0 (0.00-0.4) % Nucleat RBC Rel Count 0.0 (0.00-0.1) % Eos # (Auto) 0.11 (0-0.5) x10^3/uL Immature Gran # (Auto) 0.00 (0.00-0.03) x10^3u/L Absolute Lymphs (auto) 1.11 (1.0-4.6) x10^3/uL Absolute Monos (auto) 0.55 (0.0-1.3) x10^3/uL Absolute Nucleated RBC 0.00 (0.00-0.01) x10^3u/L Lymphocytes % 32.4 (24.0-44.0) % Monocytes % 16.0 H (0.0-12.0) % Eosinophils % 3.2 (0.00-5.0) % Basophils % 0.9 (0.0-0.4) % Absolute Granulocytes 1.63 (1.4-6.9) x10^3/uL Basophils # 0.03 (0-0.4) x10^3/uL Sodium 134 L (137-145) mmol/L Potassium 4.5 (3.5-5.1) mmol/L Chloride 105 (98-107) mmol/L Carbon Dioxide 25 (22-30) mmol/L Anion Gap 8.6 (5-15) MEQ/L BUN 15 (7-17) mg/dL Creatinine 0.88 (0.52-1.04) mg/dL Estimated GFR > 60.0 ML/MIN Glucose 101 (74-106) mg/dL Calcium 10.1 (8.4-10.2) mg/dL Magnesium 1.9 (1.6-2.3) mg/dL Total Bilirubin 0.80 (0.2-1.3) mg/dL AST 34 (14-36) U/L ALT 22 (0-35) U/L Alkaline Phosphatase 70 (38-126) U/L Troponin I 0.012 (0.000-0.034) ng/mL NT-Pro-B Natriuret Pep 1490 (0-1800) pg/mL Serum Total Protein 6.8 (6.3-8.2) g/dL Albumin 4.0 (3.5-5.0) g/dL Thyroxine (T4) (5.53-10.96) ug/dL TSH 3rd Generation (0.47-4.68) mIU/L Urine Color (Yellow) Urine Appearance (Clear) Urine pH (4.6-8.0) Ur Specific [place] (1.005-1.030) Urine Protein (Negative) Urine Glucose (UA) (Negative) mg/dL Urine Ketones (Negative) Urine Blood (Negative) Urine Nitrite (Negative) Urine Bilirubin (Negative) Urine Urobilinogen (0.2) mg/dL Ur Leukocyte Esterase (Negative) U Hyaline Cast (Auto) (0-2) /LPF Urine Microscopic RBC (0-5) /HPF Urine Microscopic WBC (0-5) /HPF Ur Epithelial Cells (None Seen) /HPF Urine Bacteria (None Seen) /HPF Urine Culture Reflexed (NO) Influenza Type A Ag (NEGATIVE) Influenza Type B Ag (NEGATIVE) RSV (PCR) (Negative) SARS-CoV-2 (PCR) (NEGATIVE) 04/15/22 04/15/22 04/15/22 Range/Units 13:00 13:00 13:43 WBC (4.0-10.5) x10^3/uL RBC (4.1-5.4) x10^6/uL Hgb (12.0-16.0) g/dL Hct (35-47) % MCV (78-100) fL MCH (26-32) pg MCHC (32-36) g/dL RDW (11.5-14.0) % Plt Count (150-450) x10^3/uL MPV (7.5-11.0) fL Gran % (36.0-66.0) % Immature Gran % (Auto) (0.00-0.4) % Nucleat RBC Rel Count (0.00-0.1) % Eos # (Auto) (0-0.5) x10^3/uL Immature Gran # (Auto) (0.00-0.03) x10^3u/L Absolute Lymphs (auto) (1.0-4.6) x10^3/uL Absolute Monos (auto) (0.0-1.3) x10^3/uL Absolute Nucleated RBC (0.00-0.01) x10^3u/L Lymphocytes % (24.0-44.0) % Monocytes % (0.0-12.0) % Eosinophils % (0.00-5.0) % Basophils % (0.0-0.4) % Absolute Granulocytes (1.4-6.9) x10^3/uL Basophils # (0-0.4) x10^3/uL Sodium (137-145) mmol/L Potassium (3.5-5.1) mmol/L Chloride (98-107) mmol/L Carbon Dioxide (22-30) mmol/L Anion Gap (5-15) MEQ/L BUN (7-17) mg/dL Creatinine (0.52-1.04) mg/dL Estimated GFR ML/MIN Glucose (74-106) mg/dL Calcium (8.4-10.2) mg/dL Magnesium (1.6-2.3) mg/dL Total Bilirubin (0.2-1.3) mg/dL AST (14-36) U/L ALT (0-35) U/L Alkaline Phosphatase (38-126) U/L Troponin I (0.000-0.034) ng/mL NT-Pro-B Natriuret Pep (0-1800) pg/mL Serum Total Protein (6.3-8.2) g/dL Albumin (3.5-5.0) g/dL Thyroxine (T4) 15.0 H (5.53-10.96) ug/dL TSH 3rd Generation < 0.015 L (0.47-4.68) mIU/L Urine Color Yellow (Yellow) Urine Appearance Clear (Clear) Urine pH 6.5 (4.6-8.0) Ur Specific [place] <=1.005 (1.005-1.030) Urine Protein Negative (Negative) Urine Glucose (UA) Negative (Negative) mg/dL Urine Ketones Negative (Negative) Urine Blood Negative (Negative) Urine Nitrite Negative (Negative) Urine Bilirubin Negative (Negative) Urine Urobilinogen 0.2 (0.2) mg/dL Ur Leukocyte Esterase Trace A (Negative) U Hyaline Cast (Auto) NONE SEEN (0-2) /LPF Urine Microscopic RBC 0-2 (0-5) /HPF Urine Microscopic WBC 6-10 A (0-5) /HPF Ur Epithelial Cells Moderate A (None Seen) /HPF Urine Bacteria None Seen (None Seen) /HPF Urine Culture Reflexed YES (NO) Influenza Type A Ag (NEGATIVE) Influenza Type B Ag (NEGATIVE) RSV (PCR) (Negative) SARS-CoV-2 (PCR) (NEGATIVE) 04/15/22 04/15/22 04/15/22 Range/Units 14:49 14:51 21:00 WBC (4.0-10.5) x10^3/uL RBC (4.1-5.4) x10^6/uL Hgb (12.0-16.0) g/dL Hct (35-47) % MCV (78-100) fL MCH (26-32) pg MCHC (32-36) g/dL RDW (11.5-14.0) % Plt Count (150-450) x10^3/uL MPV (7.5-11.0) fL Gran % (36.0-66.0) % Immature Gran % (Auto) (0.00-0.4) % Nucleat RBC Rel Count (0.00-0.1) % Eos # (Auto) (0-0.5) x10^3/uL Immature Gran # (Auto) (0.00-0.03) x10^3u/L Absolute Lymphs (auto) (1.0-4.6) x10^3/uL Absolute Monos (auto) (0.0-1.3) x10^3/uL Absolute Nucleated RBC (0.00-0.01) x10^3u/L Lymphocytes % (24.0-44.0) % Monocytes % (0.0-12.0) % Eosinophils % (0.00-5.0) % Basophils % (0.0-0.4) % Absolute Granulocytes (1.4-6.9) x10^3/uL Basophils # (0-0.4) x10^3/uL Sodium (137-145) mmol/L Potassium (3.5-5.1) mmol/L Chloride (98-107) mmol/L Carbon Dioxide (22-30) mmol/L Anion Gap (5-15) MEQ/L BUN (7-17) mg/dL Creatinine (0.52-1.04) mg/dL Estimated GFR ML/MIN Glucose (74-106) mg/dL Calcium (8.4-10.2) mg/dL Magnesium (1.6-2.3) mg/dL Total Bilirubin (0.2-1.3) mg/dL AST (14-36) U/L ALT (0-35) U/L Alkaline Phosphatase (38-126) U/L Troponin I 0.013 0.016 (0.000-0.034) ng/mL NT-Pro-B Natriuret Pep (0-1800) pg/mL Serum Total Protein (6.3-8.2) g/dL Albumin (3.5-5.0) g/dL Thyroxine (T4) (5.53-10.96) ug/dL TSH 3rd Generation (0.47-4.68) mIU/L Urine Color (Yellow) Urine Appearance (Clear) Urine pH (4.6-8.0) Ur Specific [place] (1.005-1.030) Urine Protein (Negative) Urine Glucose (UA) (Negative) mg/dL Urine Ketones (Negative) Urine Blood (Negative) Urine Nitrite (Negative) Urine Bilirubin (Negative) Urine Urobilinogen (0.2) mg/dL Ur Leukocyte Esterase (Negative) U Hyaline Cast (Auto) (0-2) /LPF Urine Microscopic RBC (0-5) /HPF Urine Microscopic WBC (0-5) /HPF Ur Epithelial Cells (None Seen) /HPF Urine Bacteria (None Seen) /HPF Urine Culture Reflexed (NO) Influenza Type A Ag NEGATIVE (NEGATIVE) Influenza Type B Ag NEGATIVE (NEGATIVE) RSV (PCR) NEGATIVE (Negative) SARS-CoV-2 (PCR) NEGATIVE (NEGATIVE) 04/16/22 04/16/22 Range/Units 04:20 04:20 WBC 4.5 (4.0-10.5) x10^3/uL RBC 3.66 L (4.1-5.4) x10^6/uL Hgb 11.4 L (12.0-16.0) g/dL Hct 35.2 (35-47) % MCV 96.2 (78-100) fL MCH 31.1 (26-32) pg MCHC 32.4 (32-36) g/dL RDW 12.8 (11.5-14.0) % Plt Count 218 (150-450) x10^3/uL MPV 9.9 (7.5-11.0) fL Gran % (36.0-66.0) % Immature Gran % (Auto) (0.00-0.4) % Nucleat RBC Rel Count (0.00-0.1) % Eos # (Auto) (0-0.5) x10^3/uL Immature Gran # (Auto) (0.00-0.03) x10^3u/L Absolute Lymphs (auto) (1.0-4.6) x10^3/uL Absolute Monos (auto) (0.0-1.3) x10^3/uL Absolute Nucleated RBC (0.00-0.01) x10^3u/L Lymphocytes % (24.0-44.0) % Monocytes % (0.0-12.0) % Eosinophils % (0.00-5.0) % Basophils % (0.0-0.4) % Absolute Granulocytes (1.4-6.9) x10^3/uL Basophils # (0-0.4) x10^3/uL Sodium 135 L (137-145) mmol/L Potassium 3.5 D (3.5-5.1) mmol/L Chloride 102 (98-107) mmol/L Carbon Dioxide 27 (22-30) mmol/L Anion Gap 8.9 (5-15) MEQ/L BUN 18 H (7-17) mg/dL Creatinine 0.89 (0.52-1.04) mg/dL Estimated GFR > 60.0 ML/MIN Glucose 93 (74-106) mg/dL Calcium 9.7 (8.4-10.2) mg/dL Magnesium (1.6-2.3) mg/dL Total Bilirubin (0.2-1.3) mg/dL AST (14-36) U/L ALT (0-35) U/L Alkaline Phosphatase (38-126) U/L Troponin I (0.000-0.034) ng/mL NT-Pro-B Natriuret Pep 1550 (0-1800) pg/mL Serum Total Protein (6.3-8.2) g/dL Albumin (3.5-5.0) g/dL Thyroxine (T4) (5.53-10.96) ug/dL TSH 3rd Generation (0.47-4.68) mIU/L Urine Color (Yellow) Urine Appearance (Clear) Urine pH (4.6-8.0) Ur Specific [place] (1.005-1.030) Urine Protein (Negative) Urine Glucose (UA) (Negative) mg/dL Urine Ketones (Negative) Urine Blood (Negative) Urine Nitrite (Negative) Urine Bilirubin (Negative) Urine Urobilinogen (0.2) mg/dL Ur Leukocyte Esterase (Negative) U Hyaline Cast (Auto) (0-2) /LPF Urine Microscopic RBC (0-5) /HPF Urine Microscopic WBC (0-5) /HPF Ur Epithelial Cells (None Seen) /HPF Urine Bacteria (None Seen) /HPF Urine Culture Reflexed (NO) Influenza Type A Ag (NEGATIVE) Influenza Type B Ag (NEGATIVE) RSV (PCR) (Negative) SARS-CoV-2 (PCR) (NEGATIVE) Microbiology 04/15/22 13:43 Urine Culture - Preliminary Urine, Void NO GROWTH TO DATE - Radiology Impressions Radiology Exams & Impressions: Radiology Procedures Category Date Time Status CHEST 1 VIEW (PORTABLE) Stat Exams 04/15/22 12:21 Completed CHEST WITHOUT CONTRAST [CT] Stat Exams 04/15/22 13:38 Completed ECHO W/2D AND DOPPLER [US] Routine Exams 04/15/22 16:44 Ordered Assessment/Plan (1) CHF (congestive heart failure) Current Visit: Yes Status: Acute Assessment & Plan: continue diuresis, will attempt to wean oxygen. if able to tolerate room air can likely go home on po lasix later today or tomorrow. echo pending, patient requesting to transfer her care to my practice. continue metoprolol, will add low dose katie as well. Code(s): I50.9 - HEART FAILURE, UNSPECIFIED (2) Essential hypertension Current Visit: No Status: Acute Code(s): I10 - ESSENTIAL (PRIMARY) HYPERTENSION
[2022-04-16] MEDS ORDERED: SYNTHROID 50 MCG PO SCH (08:30)
[2022-04-16] MEDS ORDERED: NON-FORMULARY ITEM (Atorvastatin Calcium 10 MG Tablet) PO SCH (10:00)
[2022-04-16] MEDS ORDERED: Lopressor 50 MG PO SCH (10:00)
[2022-04-16] MEDS ORDERED: ENOXAPARIN SODIUM SQ SCH (10:00)
[2022-04-16] MEDS ORDERED: Zestril 10 MG PO SCH (10:00)
[2022-04-16] MEDS ORDERED: Vasotec 10 MG PO SCH (10:00)
[2022-04-16] MEDS ORDERED: ECOTRIN 81 MG PO SCH (10:00)
[2022-04-16] MEDS ORDERED: Toprol Xl 100 MG PO SCH (10:00)
[2022-04-16] MEDS ORDERED: Klor Con PO SCH (10:00)
[2022-04-16] MEDS ORDERED: Zocor 10MG PO SCH (10:00)
[2022-04-16] MEDS: Lasix 40 MG PO SCH (10:22)
[2022-04-16 11:57] VITALS: BP 115/62; PULSE 76
[2022-04-16 13:51] VITALS: O2SAT 96
--- NOTE | 2022-04-16 13:52 | PCM.DCORD ---
- Discharge Disposition: Home, Self-Care Condition: Stable Prescriptions: New Furosemide 40 mg [Lasix 40 MG] 40 mg PO DAILY #30 tablet Lisinopril 10 mg [Zestril 10 MG] 10 mg PO DAILY #30 tablet Continue Aspirin EC 81 mg [Ecotrin 81 mg] 81 mg PO DAILY Atorvastatin Calcium [Lipitor] 10 mg PO DAILY Metoprolol Succinate 100 mg [Toprol Xl 100 MG] 100 mg PO DAILY Levothyroxine Sodium 112 mcg PO DAILY Potassium Chloride [Klor-Con 10] 30 mg PO BID Instructions: Heart Failure, Adult (DC), Low Salt Diet Follow up with: HEATH ALMARAZ MD [ACTIVE STAFF] - 2 weeks
--- NOTE | 2022-04-16 14:24 | ECHO ---
Transthoracic echocardiographic examination and color Doppler was done on 04/16/2022. INDICATION: Congestive heart failure. IMPRESSION: 1) NO REGIONAL WALL MOTION ABNORMALITY. ESTIMATED GLOBAL LEFT VENTRICULAR EJECTION FRACTION OF AROUND 65 TO 70%. 2) MILD MITRAL REGURGITATION. 3) MILD TRICUSPID REGURGITATION. RIGHT VENTRICULAR SYSTOLIC PRESSURE OF 45 MM OF MERCURY. 4) MILD PULMONIC INSUFFICIENCY. 5) LEFT VENTRICULAR HYPERTROPHY. The left ventricle is visualized and demonstrated adequate motion of all the segments. Estimated global left ventricular ejection fraction between 65 to 70%. There is mild left ventricular hypertrophy. The mitral valve is seen and this opens adequately. There is mild mitral regurgitation. Left atrium is normal. The aortic valve opens adequately. The peak gradient across the aortic valve is 11 mm of Mercury. The right side chambers are normal. There is mild tricuspid regurgitation. The right ventricular systolic pressure of 45 mm of Mercury. There is also mild pulmonic insufficiency.
== END 2022-04-16 14:18 | disposition home or self-care (01) ==
LOC: ED 11:53 → MED SURG 16:21
PROVIDERS: ADMIT Family Medicine; ATTEND Family Medicine
DX: I11.0 Hypertensive heart disease with heart failure (principal); I50.9 Heart failure, unspecified; E03.9 Hypothyroidism, unspecified; R60.0 Localized edema; E78.5 Hyperlipidemia, unspecified; Z20.828 Contact with and (suspected) exposure to other viral communicable diseases; Z79.899 Other long term (current) drug therapy
CPT/HCPCS: 0241U; 36000; 36415; 71045; 71250; 80048; 80053; 81001; 83735; 83880; 84436; 84443; 84484; 85025; 85027; 87086; 93005; 93268; 93306; 94760; 96374; 96375; 99285; G0378; J1650; J1940; A9270-GY

== ENCOUNTER 2023-07-15 08:21 | Day surgery (SDC) | payer MEDICARE, OTHER ==
--- NOTE | 2023-07-13 14:33 | HP ---
DATE OF SURGERY: 07/15/2023 HISTORY OF PRESENT ILLNESS: The patient is an 83-year-old female who presents with dysphagia. She was at a restaurant eating and had a choking spell and had the Heimlich maneuver. She reports reflux in the past. She said pills are getting stuck. She denies epigastric pain. PAST MEDICAL HISTORY: Hypertension, hypothyroidism, gastroesophageal reflux disease, kidney disease. PAST SURGICAL HISTORY: Appendectomy. Cholecystectomy. Lumpectomy. Hysterectomy. Both knees replaced. ALLERGIES: PENICILLIN. MEDICATIONS: Folic acid, folate, loratadine, levothyroxine, losartan, metoprolol. FAMILY HISTORY: Unknown. SOCIAL HISTORY: None reported. REVIEW OF SYSTEMS: CONSTITUTIONAL: Denies fever or chills. CHEST: Denies shortness of breath. CVS: Denies chest pain. ABDOMEN: Denies abdominal pain. PHYSICAL EXAMINATION: GENERAL: No acute distress. CHEST: Nonlabored. No shortness of breath. CVS: Regular rate and rhythm. ABDOMEN: Soft. IMPRESSION: Dysphagia. PLAN: EGD possible dilatation with Dr. Rod Grant. As dictated by Rosetta [place] NP.
[2023-07-15] MEDS ORDERED: Lactated Ringers 1,000 ML IV ONE (08:33)
[2023-07-15 08:55] VITALS: RESP 16
[2023-07-15 08:58] LABS: Absolute Neutrophil Ct (ANC) 2.36 x10^3/uL (1.4-6.9); BASOPHIL % 0.9 % (0.0-0.4); Basophil (Absolute #) 0.04 x10^3/uL (0-0.4); Eosinophil (Absolute #) 0.13 x10^3/uL (0-0.5); Hematocrit 39.9 % (35-47); Hemoglobin 13.2 g/dL (12.0-16.0); IMMATURE GRAN # 0.01 x10^3u/L (0.00-0.03); IMMATURE GRAN % 0.2 % (0.00-0.4); Lymphocyte (Absolute #) 1.36 x10^3/uL (1.0-4.6); Lymphocytes % 31.3 % (24.0-44.0); Mean Cell Volume 95.2 fL (78-100); Mean Corpuscular Hemoglobin 31.5 pg (26-32); Mean Corpuscular Hgb Concent. 33.1 g/dL (32-36); Mean Platelet Volume 9.9 fL (7.5-11.0); Monocyte (Absolute #) 0.44 x10^3/uL (0.0-1.3); Monocytes % 10.1 % (0.0-12.0); Neutrophil % 54.5 % (36.0-66.0); Platelet Count 213 x10^3/uL (150-450); Red Blood Count 4.19 x10^6/uL (4.1-5.4); Red Cell Distribution Width 12.5 % (11.5-14.0); White Blood Count 4.3 x10^3/uL (4.0-10.5)
[2023-07-15 09:15] LABS: Calcium 10.3 mg/dL (8.4-10.2); Creatinine 1 1.2 mg/dL (0.52-1.04); EST GLOMERULAR FILTRATION RATE 44.9 ML/MIN; Potassium 3.3 mmol/L (3.5-5.1)
[2023-07-15] MEDS: Lactated Ringers 1,000 ML IV SCH (09:59)
[2023-07-15] MEDS ORDERED: DIPRIVAN 200 MG/20 ML IV ONE (10:19)
--- NOTE | 2023-07-15 11:36 | OP ---
SURGERY DATE/TIME: 07/15/2023 PREOPERATIVE DIAGNOSIS: Dysphagia. POSTOPERATIVE DIAGNOSIS: Esophageal stricture size 36. PROCEDURE: EGD with balloon dilatation to balloon size 20 which is about the same as a 50. SURGEON: Rod Grant M.D. [employer] DRIVER: Misty Castillo M.D., [facility] II. ANESTHESIA: MAC. COMPLICATIONS: None. CONDITION: Stable. INDICATION: The patient is having trouble swallowing pills. DESCRIPTION OF PROCEDURE: She was taken to endoscopy. Left lateral decubitus position. Scope introduced. There is a stricture about 1 inch above the gastroesophageal junction about a size 36. Gastroesophageal junction slight irritation. Fundus, body and antrum slight gastritis. Pylorus normal. Duodenal bulb normal. Second portion normal. Scope looped upon itself. A 2 inch hiatal hernia. Scope withdrawn. The balloon was then placed into the stomach and scoped backed up. The balloon was centered on the stricture. It was inflated to 18 and this was held for a minute and this looked good, seemed to be no issues. It was insufflated to 19 for one minute. Again, it looked like it was doing its job and was not doing anything it was not supposed to do. It was increased to 20 for 1 minute. It was then let down. There was a diffuse slight mucosal breaking on the back wall as expected. There was no unusual distortion here. Scope withdrawn. The patient is placed on full liquids, temperature monitoring for 24 hours. Instructions to call us if there is any issue. IMPRESSION: Successful balloon dilatation of the esophageal stricture.
[2023-07-15 11:41] VITALS: BP 156/78; PULSE 52; TEMP 96.8; O2SAT 96
== END 2023-07-15 12:00 | disposition home or self-care (01) ==
LOC: SDC 08:21
PROVIDERS: ATTEND Surgery
DX: K22.2 Esophageal obstruction (principal); R13.10 Dysphagia, unspecified; I10 Essential (primary) hypertension
CPT/HCPCS: 36415; 80048; 85025; 93005; 99100; C1726; J2704